=== PATIENT | male | born 1940 | race Caucasian/White ===

== ENCOUNTER → 2024-02-18 | Outpatient (CLI) | payer MEDICARE, MEDICAID, SELFPAY ==
[2024-02-18 12:26] LABS: Basophils % (Auto) 1 % (0-2.5); Eosinophils # (Auto) 0.2 Thou/mm3 (0.0-0.5); Eosinophils % (Auto) 2 % (0-10); Hematocrit 36.9 % (41.0-53.0); Hemoglobin 11.7 g/dL (13.5-16.0); Immature Granulocytes % (Auto) 0 % (0-0); Immature Granulocytes Auto 0.02 Thou/mm3 (0.00-0.00); Lymphocytes # (Auto) 0.9 Thou/mm3 (1.0-4.8); Lymphocytes % (Auto) 11 % (10-50); Mean Corpuscular HGB Conc 31.7 g/dl (31.0-37.0); Mean Corpuscular Hemoglobin 28.7 pg (25.0-35.0); Mean Corpuscular Volume 90 fL (80-100); Monocytes # (Auto) 0.9 Thou/mm3 (0.0-0.8); Monocytes % (Auto) 11 % (0-12); Neutrophils # (Auto) 6.3 Thou/mm3 (1.8-7.7); Neutrophils % (Auto) 75 % (37-80); Nucleated Red Blood Cell % 0 /100 WBC (0); Platelet Count 215 Thou/mm3 (140-440); RDW Standard Deviation 49.5 fL (35.1-43.9); Red Blood Count 4.08 Miln/mm3 (4.50-5.90); White Blood Count 8.4 Thou/mm3 (3.8-10.6)
[2024-02-18 12:42] LABS: Albumin, Serum 4.2 gm/dL (3.4-4.8); Anion Gap 8 (7-16); BUN/Creatinine Ratio 17 Ratio (12-20); Blood Urea Nitrogen 33 mg/dL (9-23); Calcium 9.4 mg/dL (8.3-10.6); Calcium (Corrected) 9.4 mg/dL (8.5-10.1); Carbon Dioxide 21.9 mMol/L (20.0-31.0); Chloride 105 mMol/L (98-107); Creatinine (Component) 1.9 mg/dL (0.6-1.3); Glucose 99 mg/dL (74-106); Osmolality,Calculated 277 (275-295); Phosphorous 3.7 mg/dL (2.4-5.1); Potassium 4.8 mMol/L (3.4-5.1); Sodium 135 mMol/L (136-145); eGFR 34 See Note
== END | disposition home or self-care (01) ==
LOC: COPL 11:02
PROVIDERS: PCP Family Medicine; Referring Provider Family Medicine; Visit Provider Family Medicine
DX: D50.0 Iron deficiency anemia secondary to blood loss (chronic) (principal); Z13.1 Encounter for screening for diabetes mellitus
CPT/HCPCS: 36415; 80069; 85025

== ENCOUNTER 2024-02-29 07:19 | Inpatient (IN) | payer MEDICARE, MEDICAID, SELFPAY ==
[2024-02-29] VITALS (16 sets, daily range): BP systolic 104–137; BP diastolic 76–91; PULSE 77–112; RESP 16–29; TEMP 36.4–37.7; O2SAT 97–100; BMI 20.8
--- NOTE | 2024-02-29 07:38 | PC.NURSE ---
SPOKE WITH DAUGHTER FIONA. PER DAUGHTER PT IS A DNR. DAUGHTER STATES THAT PT HAS BEEN SICK X 4 DAYS AND HAS NOT BEEN EATING WELL. DAUGHTER STATES THAT HER MOM REPORTED PT BEING CONFUSED LAST NIGHT. DAUGHTER STATES PT WAS AT [facility] 3 WEEKS AGO AND HAD ELEVATED TROPONIN LEVELS AND WAS TOLD HE HAD A BLOCKAGE. PER DAUGHTER THEY DECIDED NOT DO ANYTHING AND MAKE PT A DNR. PT IS ALERT AND ORIENTED AT THIS TIME WITH GCS 15. PT PLACED ON 3L NC WHICH EMS STATED THAT PT NORMALLY USES 3L. PT PLACED ON CC MONITOR.
--- NOTE | 2024-02-29 07:44 | EKG_ITS ---
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
--- NOTE | 2024-02-29 08:13 | PD.EDADULT ---
ED General RME/HPI General Chief complaint: Weakness Stated complaint: Weakness Time Seen by Provider: 02/29/24 08:03 Arrival date/time: 02/29/24 07:19 RME / HPI RME / HPI narrative: 84 year old male with history of hypertension and COPD on 3L home oxygen presents to the ED BIBA from home for complaint of weakness today. Reports he had a difficult time getting out of bed and required assistance, which is new for him. Patient additionally reports in the last few days has had pain to his chest and abdomen, occurring intermittently, and not eating/drinking well. Chest pain last occurred 3 days ago. Abdominal pain last occurred yesterday. Accompanied by cough and shortness of breath. No known modifying factors at home. Denies fevers, chills, vomiting, diarrhea, constipation, or urinary symptoms. Related Data Home Medications ?Medication ?Instructions ?Recorded ?Confirmed omeprazole 20 mg capsule,delayed 20 mg PO QDAY 12/20/19 02/29/24 release meloxicam 7.5 mg tablet 7.5 mg PO BID PRN Pain 02/16/23 02/29/24 tramadol 50 mg tablet 50 mg PO Q8H PRN Pain 02/16/23 02/29/24 aspirin 81 mg tablet,delayed 81 mg PO QDAY 02/29/24 02/29/24 release furosemide 40 mg tablet 40 mg PO QDAY 02/29/24 02/29/24 nitroglycerin 0.4 mg sublingual 0.4 mg buccal [id number] PRN Chest 02/29/24 02/29/24 tablet Pain spironolactone 25 mg tablet 25 mg PO QDAY 02/29/24 02/29/24 Allergies Allergy/AdvReac Type Severity Reaction Status Date / Time lidocaine Allergy Intermediate Unresponsiv Verified 02/29/24 07:55 e Review of Systems Review of Systems Narrative Review of Systems: Gen: No fever, no chills, no weight loss EYES: No discharge, no visual changes, no pain HEENT: No ear pain, no congestion, no sore throat PULM: + shortness of breath, +cough, no congestion CV: +chest pain, no palpitations, no chest tightness GI: No nausea, no vomiting, no diarrhea, +pain, +decreased appetite, no constipation : No frequency, no urgency,? no dysuria Musc/skel: No joint pain, no back pain Skin: No rash, no ecchymosis, no lesions Psyc: No hallucinations, no depression Heme/Lymph: No easy bleeding or bruising tendencies Neuro: No weakness, no headache Past Medical History Past Medical History RESPIRATORY: Positive Chronic Obstructive Pulmonary Disease (COPD) and Pneumonia (Has home 02, uses it as need it) GASTROINTESTINAL: Positive Gastrointestinal Disorders and Gastroesophageal Reflux Disease GENITOURINARY: Positive Inguinal Hernia (left) MUSCULOSKELETAL: Positive Musculoskeletal Disorders and Arthritis ENT: Positive Cataracts (Had surgery) and Glaucoma OTHER HISTORY: Positive Hospitalization (pneumonia), Blood Transfusions, Chicken Pox, Measles and Clostridium Difficile Family History FAMILY HISTORY: Negative Family Psychiatric Problems, Family Respiratory Disorders, Family Cardiac Disorders, Family Gastrointestinal Problems, Family Cancer, Family Surgery or Family Anesthesia Reaction Surgical History SURGICAL: Positive Vasectomy Social History SMOKING STATUS: Former smoker SECOND HAND EXPOSURE: No ED Exam Narrative Physical exam: GENERAL APPEARANCE: AxOx4, no obvious distress, nontoxic appearing HEENT: NC, AT. Dry MM. EOMI, clear conjunctiva, oropharynx clear. NECK: Supple without lymphadenopathy. No stiffness or restricted ROM. HEART: Normal rate and regular rhythm, normal S1/S1, no m/r/g LUNGS: CTAB, moving air well. No crackles or wheezes are heard. ABDOMEN: Exam is limited 2/2 voluntary guarding. Soft, diffuse abdominal pain, nondistended with good bowel sounds heard. BACK: No midline C/T/L spine pain or deformity, No CVAT, no obvious deformity. EXTREMITIES: Without cyanosis, clubbing or edema. MUSCULOSKELETAL: FROM of all major joints, no chest tenderness NEUROLOGICAL: Grossly nonfocal. Alert and oriented, moving all 4 extremities. CN not formally tested but appear grossly intact. Skin: Warm and dry without any rash. Course Quality Measures none Orders Category Date Time Status Bedside COVID-19 Antigen Test NOW Care 02/29/24 08:49 Active Bedside Influenza A&B Antigen Test NOW Care 02/29/24 08:49 Completed EKG (ED ONLY) *Do not use* NOW Care 02/29/24 07:44 Completed [place] [Urinary Catheter] QS Care 02/29/24 11:[address] chest abdomen pelvis wo Stat Exams 02/29/24 09:40 Completed EKG (ED Only) Stat Exams 02/29/24 07:44 Draft US gall bladder Stat Exams 02/29/24 09:40 Completed XR chest 1V Stat Exams 02/29/24 08:15 Completed BNP [B-Type Natriuretic Peptide] Stat Lab 02/29/24 08:38 Completed Blood Culture (Lab) Stat Lab 02/29/24 08:46 Results CBC Stat Lab 02/29/24 08:38 Completed CMP [Comprehensive Metabolic Panel] Stat Lab 02/29/24 08:38 Completed Lactate (Lactic Acid) Stat Lab 02/29/24 08:38 Completed Lactic Acid, 3 HR Stat Lab 02/29/24 12:32 Completed Lipase Stat Lab 02/29/24 08:38 Completed Partial Thromboplastin Time Stat Lab 02/29/24 08:38 Completed Potassium Stat Lab 02/29/24 14:02 Completed Procalcitonin Stat Lab 02/29/24 08:38 Completed Prothrombin Time with INR Stat Lab 02/29/24 08:38 Completed RSV [Respiratory Syncytial Virus Ag] Stat Lab 02/29/24 11:42 Completed Troponin I Stat Lab 02/29/24 08:38 Completed Urinalysis Stat Lab 02/29/24 11:42 Completed Furosemide Inj [Lasix Inj] Med 02/29/24 11:17 Discontinued 40 mg IVP X1 ONE Furosemide Inj [Lasix Inj] Med 02/29/24 12:47 Discontinued 40 mg IVP X1 ONE Piper/Tazo 3.375 gm [Zosyn] Med 02/29/24 09:42 Discontinued 3.375 gm in 50 ml IV X1 Sodium Chloride 0.9% 1000 ml [Ns] 1,000 ml Med 02/29/24 08:47 Discontinued IV 999 mls/hr Reevaluation(s) Reevaluation #1: Patient remains clinically stable throughout the emergency department visit. We reviewed all the results, analysis, and treatment plans. Patient is amenable to admission. Time: 12:45 Vital Signs Vital signs: Vital Signs Pulse Rate 110 H 02/29/24 07:28 Respiratory Rate 16 02/29/24 07:28 Blood Pressure 119/85 H 02/29/24 07:28 Pulse Oximetry (%) 98 02/29/24 07:28 Oxygen Delivery Method Room Air 02/29/24 07:28 Pulse ox is 98% on room air which is adequate. MDM Patient data External records reviewed:: [facility] previous records (I reviewed admission from 12/19/2019 through 12/28/2019) and EMS form Clinical information provided by:: patient Social determinants that could affect healthcare access:: none Patient has the following chronic illnesses:: HTN, COPD on 3L home oxygen How is presenting disease/condition affected by chronic disease/condition?: exacerbated by Evaluation data The following diagnostics were reviewed and interpreted by me:: lab results, radiology exam(s) (My interpretation CXR, bilateral lower lobe infiltrates which is new in comparison to CXR performed last month. ) and EKG tracing(s) (Sinus tachycardia, rate 106, left bundle branch block, EKG unchanged from previous on 02/17/2024. ) Lab and/or radiology exams considered but not ordered:: None Interpretation Summary: Ordering Physician: Charly Olivarez MD Date of Service: 02/29/24 Procedure(s): CT chest abdomen pelvis wo Accession Number(s): [id number] cc: Charly Olivarez MD; Raúl Gil MD; Paul Rodgers MD~ Examination: CT chest, without intravenous contrast. CT abdomen, without intravenous contrast. CT pelvis, without intravenous contrast. 2-D sagittal and coronal reconstructions. 3-D reconstructions. Date and time of exam:February 29, 2024 1007 hours INDICATIONS: Right upper abdominal pain with shortness of breath beginning today CTDI vol (mgy) 5.73 DLP (MGycm)486 Technique: Multiple CT images, 3.0 mm slice thickness, obtained chest, abdomen, pelvis, with the high-resolution 64 slice scanner.. Sagittal and coronal 2-D reconstructions are obtained. 3-D reconstructions Low dose protocols were performed. One or more of the following dose reduction techniques were used; automated exposure control, adjustment of the mA and/or KV according to patient size, use of iterative reconstruction technique. Findings: Heavy thoracic aortic calcification with mild aneurysmal dilatation, mediolateral dimension ascending thoracic aorta 4.3 cm Pulmonary artery segments are mildly enlarged, main pulmonary artery segment 3.1 cm Heavy calcification left main left anterior descending coronary arteries Mild to moderate enlargement cardiac contour Heart failure with mild to moderate enlargement cardiac contour vascular congestion and septal edema Significant pneumonia at the lung bases Moderate left pleural effusion No focal liver or splenic lesions No pancreatic mass Heavy abdominal aortic calcification heavy calcification origin renal arteries No hydronephrosis IMPRESSION: Mild CHF with bilateral pulmonary edema or prominent vascular congestion Significant pneumonia at the lung bases Mild aneurysmal dilatation ascending thoracic aorta Dictated By:Raúl Gil MD Signed By:<Electronically signed by Raúl Gil MD in OV>02/29/24 1048 Ordering Physician: Charly Olivarez MD Date of Service: 02/29/24 Procedure(s): XR chest 1V Accession Number(s): [id number] cc: Charly Olivarez MD; Raúl Gil MD; Paul Rodgers MD~ Examination: AP chest single view TECHNIQUE: AP portable sitting chest single view Exam date and time: February 29, 2024 0829 hours Comparison February 02, 2024 INDICATIONS: Onset chest pain today. FINDINGS: Mild CHF with moderate enlargement cardiac contour with prominent vascular congestion Pneumonia at the left lung base Prominent osteopenia IMPRESSION: Mild CHF COPD Pneumonia left base Dictated By:Raúl Gil MD Signed By: <Electronically signed by Raúl Gil MD in OV>02/29/24 1113 Ordering Physician: Charly Olivarez MD Date of Service: 02/29/24 Procedure(s): US gall bladder Accession Number(s): [id number] cc: Charly Olivarez MD; Raúl Gil MD; Paul Rodgers MD~ Examination: Abdomen sonogram, Limited Date and time of exam: February 29, 2024 1204 hours INDICATIONS: Loss of appetite beginning 3 weeks ago Technique: Real-time arias scale transabdominal sonographic images of the upper abdomen obtained. Findings: Normal gallbladder Normal common bile duct 0.2 cm Pancreatic head 2.7 cm Liver 14.4 cm smooth contour no focal liver lesions Normal hepatopedal portal venous flow Patent IVC IMPRESSION: Negative examination Dictated By:Raúl Gil MD Signed By:<Electronically signed by Raúl Gil MD in OV>02/29/24 1317 Medications Medications considered but not ordered:: None Medication administrations:: Medication Administration History Acetaminophen (Acetaminophen 325 Mg Tablet) 650 mg PO Q6H PRN PRN Reason: Fever >100.3 or pain 1-3 Stop: 03/30/24 13:39 Albuterol/Ipratropium (Albuterol/Ipratropium (Duoneb) Rt Gretchen 3 Ml Nebu) 3 ml INH Q6HRRT PRN PRN Reason: COUGH Stop: 03/30/24 18:59 Last Admin: 03/01/24 01:57 Dose: 3 ml Documented By: SC Aspirin (Aspirin Ec 81 Mg Tabec) 81 mg PO QDAY [facility] Stop: 03/31/24 08:59 Last Admin: 03/01/24 09:09 Dose: 81 mg Documented By: JESSICA Bumetanide (Bumetanide Inj 0.25 Mg/Ml Vial 4 Ml) 1 mg IVP BIDD [facility] Stop: 03/30/24 17:59 Last Admin: 03/01/24 05:35 Dose: 1 mg Documented By: Admin: 02/29/24 19:19 Dose: 1 mg Documented By: KG Heparin Sodium/Dextrose (Heparin In D5w Ivpb) 25,000 unit in 250 mls @ 9.09 mls/hr IV .Q24H [facility]; Protocol Stop: 03/14/24 19:14 Last Titration: 03/01/24 12:15 Dose: 14 units/kg/hr, 10.605 mls/hr Documented By: JESSICA Co-signed By: MGFlavio Titration: 03/01/24 04:42 Dose: 14 units/kg/hr, 10.605 mls/hr Documented By: MARCUS Co-signed By: CCT Admin: 02/29/24 20:43 Dose: 12 units/kg/hr, 9.09 mls/hr Documented By: MARCUS Co-signed By: MLFlaivo Sodium Chloride (Ns) 1,000 mls @ 80 mls/hr IV .[id number] [facility] Stop: 03/02/24 09:12 Last Admin: 03/01/24 09:35 Dose: 80 mls/hr Documented By: JESSICA Metoprolol Tartrate (Metoprolol Tartrate 25 Mg Tablet) 12.5 mg PO BID [facility] Stop: 03/31/24 08:59 Last Admin: 03/01/24 09:09 Dose: 12.5 mg Documented By: JESSICA Ondansetron HCl (Ondansetron Inj 2 Mg/Ml Inj 2 Ml) 4 mg IV Q6H PRN; Protocol PRN Reason: NAUSEA OR VOMITING Stop: 03/30/24 13:39 Last Admin: 02/29/24 18:02 Dose: 4 mg Documented By: DO Pantoprazole Sodium (Pantoprazole 20 Mg Tablet) 20 mg PO QDAY [facility] Stop: 03/31/24 08:59 Last Admin: 03/01/24 09:09 Dose: 20 mg Documented By: JESSICA Patiromer (Patiromer Calcium 8.4 Gm Packet (Non-Form)) 8.4 gm PO QDAY [facility] Stop: 03/06/24 08:59 Last Admin: 03/01/24 09:34 Dose: 8.4 gm Documented By: JESSICA Tramadol HCl (Tramadol Hcl 50 Mg Tablet) 50 mg PO Q12H PRN; Protocol PRN Reason: PAIN SCALE 4-10(Mod-Sev Stop: 03/06/24 11:43 Discontinued Medications Acetaminophen (Acetaminophen 325 Mg Tablet) 650 mg PO Q6H PRN PRN Reason: Fever >100.3 or pain Stop: 03/30/24 13:39 Calcium Gluconate (Calcium Gluconate 10% Inj 1 Gm/10 Ml Vial) 1 gm IV X1 ONE Stop: 02/29/24 16:33 Last Admin: 02/29/24 16:53 Dose: 1 gm Documented By: DO Furosemide (Furosemide Inj 10 Mg/Ml 4ml Vial) 40 mg IVP X1 ONE Stop: 02/29/24 11:18 Last Admin: 02/29/24 11:33 Dose: 40 mg Documented By: DO Furosemide (Furosemide Inj 10 Mg/Ml 4ml Vial) 40 mg IVP X1 ONE Stop: 02/29/24 12:48 Last Admin: 02/29/24 13:06 Dose: 40 mg Documented By: DO Heparin Sodium (Porcine) (Heparin Sod Inj 5000 Unit/Ml Vial) 5,000 unit SC Q12HR [facility] Stop: 03/14/24 20:59 Heparin Sodium (Porcine) (Heparin Sod Inj 5000 Unit/Ml Vial) 4,000 unit IV X1 ONE; Protocol Stop: 02/29/24 19:04 Last Admin: 02/29/24 20:41 Dose: 4,000 unit Documented By: MARCUS Co-signed By: MADELINE Comments: ptt 27.6 Heparin Sodium (Porcine) (Heparin Sod Inj 5000 Unit/Ml Vial) 2,000 unit IV PRN ONE Stop: 03/01/24 03:49 Heparin Sodium (Porcine) (Heparin Sod Inj 5000 Unit/Ml Vial) 2,000 unit IV X1 ONE Stop: 03/01/24 04:22 Last Admin: 03/01/24 04:34 Dose: 2,000 unit Documented By: MARCUS Co-signed By: VICKY Sodium Chloride (Ns) 1,000 mls @ 999 mls/hr IV .Q1H1M ONE Stop: 02/29/24 09:47 Last Infusion: 02/29/24 11:15 Dose: Infused Documented By: Admin: 02/29/24 09:53 Dose: 999 mls/hr Documented By: Piperacillin/Tazobactam/Dextrose (Zosyn) 3.375 gm in 50 mls @ 100 mls/hr IV X1 ONE Stop: 02/29/24 10:11 Last Infusion: 02/29/24 11:00 Dose: Infused Documented By: Admin: 02/29/24 09:52 Dose: 100 mls/hr Documented By: Piperacillin/Tazobactam/Dextrose (Zosyn) 50 mls @ 100 mls/hr IV Q6HR [facility] Stop: 03/07/24 15:59 Last Admin: 03/01/24 05:35 Dose: 100 mls/hr Documented By: Infusion: 03/01/24 00:51 Dose: Infused Documented By: Admin: 03/01/24 00:21 Dose: 100 mls/hr Documented By: Infusion: 02/29/24 18:50 Dose: Infused Documented By: Admin: 02/29/24 17:38 Dose: 100 mls/hr Documented By: Magnesium Sulfate (Magnesium Sulfate Ivpb) 2 gm in 50 mls @ 25 mls/hr IV X1 ONE Stop: 02/29/24 18:32 Last Infusion: 02/29/24 19:14 Dose: Infused Documented By: Admin: 02/29/24 16:56 Dose: 25 mls/hr Documented By: Amiodarone HCl/Dextrose (Nexterone Ivpb) 150 mg in 100 mls @ 600 mls/hr IV .Q10M ONE Stop: 02/29/24 19:05 Last Admin: 02/29/24 20:22 Dose: 600 mls/hr Documented By: MARCUS Amiodarone HCl/Dextrose (Nexterone Ivpb) 360 mg in 200 mls @ 33.333 mls/hr IV .Q6H ONE Stop: 03/01/24 00:55 Last Admin: 02/29/24 20:32 Dose: 33.333 mls/hr Documented By: MARCUS Amiodarone HCl/Dextrose (Nexterone Ivpb) 360 mg in 200 mls @ 16.667 mls/hr IV .Q12H [facility] Stop: 03/02/24 00:55 Last Admin: 03/01/24 02:16 Dose: 16.667 mls/hr Documented By: MARCUS Piperacillin/Tazobactam/Dextrose (Zosyn) 50 mls @ 12.5 mls/hr IV Q12HR [facility] Stop: 03/07/24 15:59 Last Admin: 03/01/24 12:42 Dose: 12.5 mls/hr Documented By: JESSICA Metoprolol Tartrate (Metoprolol Tartrate 25 Mg Tablet) 25 mg PO BID [facility] Stop: 03/31/24 08:59 Sodium Polystyrene Sulfonate (Sod Polystyrene Sulfon Susp 15 Gm/60 Ml Btl) 10 gm PO X1 ONE Stop: 02/29/24 16:33 Last Admin: 02/29/24 17:39 Dose: 10 gm Documented By: Sodium Polystyrene Sulfonate (Sod Polystyrene Sulfon Susp 15 Gm/60 Ml Btl) 30 gm PO X1 ONE Stop: 03/01/24 08:26 Tramadol HCl (Tramadol Hcl 50 Mg Tablet) 50 mg PO Q8HR PRN PRN Reason: PAIN Stop: 03/06/24 09:57 Tramadol HCl (Tramadol Hcl 50 Mg Tablet) 50 mg PO Q8HR PRN PRN Reason: PAIN SCALE 4-10(Mod-Sev Stop: 03/06/24 09:57 Last Admin: 03/01/24 10:15 Dose: 50 mg Documented By: JRR See above Consultations Consultation(s) initiated? (list below): Yes Consultation #1 (Physician, Specialty, Details): I spoke with hospitalist Dr. Merida. Discussed patients PMHx, HPI, ED course, exam findings, labs, and radiology results. The hospitalist agree to accept the patient for admission. Time: 12:50 Diagnosis Differential Diagnosis ED Complaint MDM: Dehydration, viral illness, pneumonia Most likely diagnosis given after review of the tests above:: CHF exacerbation Hospital acquired pneumonia Admission Indicated Admission indicated?: indicated Explain why admission is indicated or not indicated:: Further management and treatment of CHF exacerbation and hosp acquired pna. Admission Request Was there a request for admission?: Yes Admission Attestation Admission request attestation: Discussed case with [] from Hospitalist service regarding admission. Discussed patients ED course, exam findings, labs, and radiology results. The Hospitalist [agrees,declines] to accept the patient for admission. Disposition Plan Disposition Plan: Admit Medical Decision Making Differential Diagnosis Differential Diagnosis: Dehydration, viral illness, pneumonia Lab Data 03/01/24 03:07 03/01/24 03:07 Labs: Lab Results 02/29/24 02/29/24 02/29/24 Range/Units 08:38 11:42 12:32 WBC 9.9 (3.8-10.6) Thou/mm3 RBC 4.33 L (4.50-5.90) Miln/mm3 Hgb 12.4 L (13.5-16.0) g/dL Hct 37.9 L (41.0-53.0) % MCV 88 (80-100) fL MCH 28.6 (25.0-35.0) pg MCHC 32.7 (31.0-37.0) g/dl RDW Std Deviation 48.7 H (35.1-43.9) fL Plt Count 212 (140-440) Thou/mm3 Neut % (Auto) 74 (37-80) % Lymph % (Auto) 10 (10-50) % [place] % (Auto) 16 H (0-12) % Eos % (Auto) 0 (0-10) % Baso % (Auto) 0 (0-2.5) % Neut # (Auto) 7.3 (1.8-7.7) Thou/mm3 Lymph # (Auto) 1.0 (1.0-4.8) Thou/mm3 [place] # (Auto) 1.6 H (0.0-0.8) Thou/mm3 Eos # (Auto) 0.0 (0.0-0.5) Thou/mm3 Baso # (Auto) 0.0 (0.0-0.2) Thou/mm3 Immature Gran # (Auto) 0.03 H (0.00-0.00) Thou/mm3 Absolute Nucleated RBC 0.00 (0.00-0.00) Thou/mm3 Immature Gran % 0 (0-0) % Nucleated RBC % 0 (0) /100 WBC PT 14.6 H (9.0-12.2) Seconds INR 1.4 H (0.9-1.3) APTT 27.6 (22.0-36.0) Seconds Sodium 135 L (136-145) mMol/L Potassium 5.6 H (3.4-5.1) mMol/L Chloride 102 (98-107) mMol/L Carbon Dioxide 21.2 (20.0-31.0) mMol/L Anion Gap 12 (7-16) BUN 50 H (9-23) mg/dL Creatinine 2.6 H (0.6-1.3) mg/dL Estim Creat Clear Calc 21.9 L (>60) mL/min eGFR 23 L (60 - ) See Note BUN/Creatinine Ratio 19 (12-20) Ratio Glucose 112 H (74-106) mg/dL Calculated Osmolality 284 (275-295) Lactic Acid 2.4 H 2.4 H (0.4-2.0) mMol/L Calcium 10.1 (8.3-10.6) mg/dL Corrected Calcium 10.1 (8.5-10.1) mg/dL Total Bilirubin 1.2 (0.3-1.2) mg/dL AST 444 H (0-34) U/L ALT 600 H* (10-49) U/L Alkaline Phosphatase 129 H (46-116) U/L Troponin I 0.060 H* (0.0-0.045) ng/mL B-Natriuretic Peptide > 3280 H* (0-100) pg/mL Total Protein 7.3 (5.7-8.2) gm/dL Albumin 4.4 (3.4-4.8) gm/dL Globulin 2.9 (2.3-3.5) gm/dL Albumin/Globulin Ratio 1.5 (1.2-2.2) Lipase 28 (12-53) U/L Procalcitonin 0.29 (0.0-0.49) ng/ml Ur Collection Type Catheter Urine Color Yellow (Lt Yel-Yel) Urine Clarity Clear (Clear/Hazy) Urine pH 5.5 (5.0-7.0) Ur Specific [place] 1.022 (1.001-1.035) Urine Protein 1+ A (Neg - Trace) Urine Glucose (UA) Negative (Negative) Urine Ketones Trace (Negative) Urine Blood Negative (Negative) Urine Nitrite Negative (Negative) Urine Bilirubin Negative (Negative) Urine Urobilinogen (Auto) Negative (0.0-1.0) mg/dL Ur Leukocyte Esterase Negative (Negative) Urine RBC < 1 (0-3) /hpf Urine WBC 1 (0-5) /hpf Ur Squamous Epith Cells 0 (0-5) /hpf Urine Bacteria None (None) RSV Rapid Negative (Negative) Critical Care Time Critical Care Time Critical Care Time: Yes Total Critical Care Time (min.): 45 Attestation: Excluding billable procedures for the rapid response, analysis, management, treatment, and documentation to vent the very possible risk of cardiovascular decompensation and or . Discharge Plan Plan Patient Disposition: Admit Acute Care w/in Hospital Problem List Clinical Impression: CHF exacerbation, Hospital acquired PNA
[2024-02-29 09:04] LABS: Lactate (Lactic Acid) 2.4 mMol/L (0.4-2.0)
[2024-02-29 09:05] LABS: Basophils % (Auto) 0 % (0-2.5); Eosinophils % (Auto) 0 % (0-10); Hematocrit 37.9 % (41.0-53.0); Hemoglobin 12.4 g/dL (13.5-16.0); Immature Granulocytes % (Auto) 0 % (0-0); Immature Granulocytes Auto 0.03 Thou/mm3 (0.00-0.00); Lymphocytes % (Auto) 10 % (10-50); Mean Corpuscular HGB Conc 32.7 g/dl (31.0-37.0); Mean Corpuscular Hemoglobin 28.6 pg (25.0-35.0); Mean Corpuscular Volume 88 fL (80-100); Monocytes # (Auto) 1.6 Thou/mm3 (0.0-0.8); Monocytes % (Auto) 16 % (0-12); Neutrophils # (Auto) 7.3 Thou/mm3 (1.8-7.7); Neutrophils % (Auto) 74 % (37-80); Nucleated Red Blood Cell % 0 /100 WBC (0); Platelet Count 212 Thou/mm3 (140-440); RDW Standard Deviation 48.7 fL (35.1-43.9); Red Blood Count 4.33 Miln/mm3 (4.50-5.90); White Blood Count 9.9 Thou/mm3 (3.8-10.6)
[2024-02-29 09:22] LABS: INR 1.4 (0.9-1.3); Partial Thromboplastin Time 27.6 Seconds (22.0-36.0); Prothrombin Time 14.6 Seconds (9.0-12.2)
[2024-02-29 09:34] LABS: Alanine Aminotransferase 600 U/L (10-49); Albumin, Serum 4.4 gm/dL (3.4-4.8); Albumin/Globulin Ratio 1.5 (1.2-2.2); Alkaline Phosphatase 129 U/L (46-116); Anion Gap 12 (7-16); Aspartate Amino Transferase 444 U/L (0-34); BUN/Creatinine Ratio 19 Ratio (12-20); Bilirubin,Total 1.2 mg/dL (0.3-1.2); Blood Urea Nitrogen 50 mg/dL (9-23); Calcium 10.1 mg/dL (8.3-10.6); Calcium (Corrected) 10.1 mg/dL (8.5-10.1); Carbon Dioxide 21.2 mMol/L (20.0-31.0); Chloride 102 mMol/L (98-107); Creatinine (Component) 2.6 mg/dL (0.6-1.3); Estimated Creatinine Clearance 21.9 mL/min (>60); Globulin 2.9 gm/dL (2.3-3.5); Glucose 112 mg/dL (74-106); Lipase 28 U/L (12-53); Osmolality,Calculated 284 (275-295); Potassium 5.6 mMol/L (3.4-5.1); Procalcitonin 0.29 ng/ml (0.0-0.49); Sodium 135 mMol/L (136-145); Total Protein 7.3 gm/dL (5.7-8.2); eGFR 23 See Note
--- NOTE | 2024-02-29 09:40 | XR_ITS ---
Examination: Abdomen sonogram, Limited Date and time of exam: February 29, 2024 1204 hours INDICATIONS: Loss of appetite beginning 3 weeks ago Technique: Real-time arias scale transabdominal sonographic images of the upper abdomen obtained. Findings: Normal gallbladder Normal common bile duct 0.2 cm Pancreatic head 2.7 cm Liver 14.4 cm smooth contour no focal liver lesions Normal hepatopedal portal venous flow Patent IVC IMPRESSION: Negative examination
--- NOTE | 2024-02-29 09:40 | XR_ITS ---
Examination: CT chest, without intravenous contrast. CT abdomen, without intravenous contrast. CT pelvis, without intravenous contrast. 2-D sagittal and coronal reconstructions. 3-D reconstructions. Date and time of exam:February 29, 2024 1007 hours INDICATIONS: Right upper abdominal pain with shortness of breath beginning today CTDI vol (mgy) 5.73 DLP (MGycm)486 Technique: Multiple CT images, 3.0 mm slice thickness, obtained chest, abdomen, pelvis, with the high-resolution 64 slice scanner.. Sagittal and coronal 2-D reconstructions are obtained. 3-D reconstructions Low dose protocols were performed. One or more of the following dose reduction techniques were used; automated exposure control, adjustment of the mA and/or KV according to patient size, use of iterative reconstruction technique. Findings: Heavy thoracic aortic calcification with mild aneurysmal dilatation, mediolateral dimension ascending thoracic aorta 4.3 cm Pulmonary artery segments are mildly enlarged, main pulmonary artery segment 3.1 cm Heavy calcification left main left anterior descending coronary arteries Mild to moderate enlargement cardiac contour Heart failure with mild to moderate enlargement cardiac contour vascular congestion and septal edema Significant pneumonia at the lung bases Moderate left pleural effusion No focal liver or splenic lesions No pancreatic mass Heavy abdominal aortic calcification heavy calcification origin renal arteries No hydronephrosis IMPRESSION: Mild CHF with bilateral pulmonary edema or prominent vascular congestion Significant pneumonia at the lung bases Mild aneurysmal dilatation ascending thoracic aorta
--- NOTE | 2024-02-29 09:45 | PC.NURSE ---
pt noted to have possible runs of v-tach. cardiac strips printed and shown to dr chavez at this time. no new orders received
[2024-02-29] MEDS: PIPER/TAZO 3.375 GM 3.375 GM/50 ML BAG IV (09:52)
[2024-02-29] MEDS: SODIUM CHLORIDE 0.9% 1000 ML 1,000 ML 999 ML IV (09:53)
[2024-02-29] MEDS: FUROSEMIDE INJ 10 MG/ML 4ML VIAL 40 MG IVP ×2 (11:33→13:06)
--- NOTE | 2024-02-29 11:38 | PC.NURSE ---
400ml urine output noted with cath insertion.
[2024-02-29 11:45] LABS: Collection Type, Urine Catheter; Squamous Epithelial Cell,Urine 0 /hpf (0-5)
[2024-02-29 11:52] LABS: Bilirubin,Urine Negative (Negative); Blood,Urine Negative (Negative); Clarity,Urine Clear (Clear/Hazy); Color,Urine Yellow (Lt Yel-Yel); Glucose, Urine Negative (Negative); Ketones,Urine Trace (Negative); Leukocyte Esterase,Urine Negative (Negative); Nitrite,Urine Negative (Negative); PH,Urine 5.5 (5.0-7.0); Protein,Urine 1+ (Neg - Trace); RBC,Urine < 1 /hpf (0-3); Specific Gravity,Urine 1.022 (1.001-1.035); Urobilinogen,Urine Negative mg/dL (0.0-1.0); WBC,Urine 1 /hpf (0-5)
[2024-02-29 12:02] LABS: Reflex Lactate? Y
[2024-02-29 12:12] LABS: B-Type Natriuretic Peptide > 3280 pg/mL (0-100)
[2024-02-29 12:18] LABS: Respiratory Syncytial Virus Ag Negative (Negative)
[2024-02-29 12:39] LABS: Lactic Acid, 3 HR 2.4 mMol/L (0.4-2.0)
--- NOTE | 2024-02-29 13:46 | ECHO_ITS ---
Transthoracic Echo Report Ht (in): 75 Wt (lb): 167 Exam Location: ER Status: Inpatient Vegetable Cook: Kassandra Torres Indications: Procedure Performed: BP: 104 / 89 HR: 112 Rhythm: Tachycardia Technical Quality: Fair MEASUREMENTS (Male / Female) Normal Values 2D ECHO LV Diastolic Diameter PLAX 5.8 cm 4.2 - 5.9 / 3.9 - 5.3 cm LV Systolic Diameter PLAX 5.4 cm IVS Diastolic Thickness 1.1 cm 0.6 - 1.0 / 0.6 - 0.9 cm LVPW Diastolic Thickness 1.1 cm 0.6 - 1.0 / 0.6 - 0.9 cm LV Relative Wall Thickness 0.4 LVOT Diameter 2.1 cm LA Volume Index 64.4 cm?/m? 16 - 28 cm?/m? Ascending Aorta Diameter 2.7 cm M-MODE Aortic Root Diameter MM 2.7 cm LA Systolic Diameter MM 5.3 cm LA Ao Ratio MM 2.0 MV E Point Septal Separation 1.4 cm AV Cusp Separation MM 1.7 cm DOPPLER AV Peak Velocity 96.9 cm/s AV Peak Gradient 3.8 mmHg AV Mean Gradient 2.0 mmHg AV Velocity Time Integral 10.5 cm LVOT Peak Velocity 61.5 cm/s LVOT Peak Gradient 1.5 mmHg LVOT Velocity Time Integral 6.5 cm LVOT Cardiac Index 1267.3 cm?/min?m? AV Area Cont Eq vti 2.1 cm? AV Area Cont Eq pk 2.2 cm? MV Peak Velocity 189.0 cm/s MV Peak Gradient 14.3 mmHg MV Mean Velocity 84.8 cm/s MV Mean Gradient 4.0 mmHg MV Area PHT 4.9 cm? MR Peak Velocity 486.0 cm/s MR Peak Gradient 94.5 mmHg Mitral E Point Velocity 137.0 cm/s Mitral A Point Velocity 34.5 cm/s Mitral E to A Ratio 4.0 LV E' Lateral Velocity 13.3 cm/s Mitral E to LV E' Lateral Ratio 10.3 LV E' Septal Velocity 1.8 cm/s Mitral E to LV E' Septal Ratio 74.1 TR Peak Velocity 352.6 cm/s TR Peak Gradient 49.7 mmHg FINDINGS Left Ventricle Mild dilated left ventricle. Severe systolic dysfunction. Severe global hypokinesis. The ejection fr action is visually estimated at 10-15%. Right Ventricle The right ventricle is mildly dilated. Mild systolic dysfunction. The estimated right ventricular sy stolic pressure, 68 mmHg. Left Atrium The left atrium is severly dilated. Right Atrium The right atrium is moderately dilated. Atrial Septum The interatrial septum appears normal with no evidence of a shunt. Aorta The aorta is normal by two-dimensional, color flow and Doppler interrogation. Mitral Valve The mitral valve is severely MAC. There is moderate to severe mitral valve regurgitation. Aortic Valve The aortic valve is trileaflet. Mild sclerosis without stenosis. There is trace aortic valve regurg itation. Tricuspid Valve The tricuspid valve is normal by two-dimensional, color flow and Doppler interrogation. There is mod erate tricuspid valve regurgitation. Pulmonic Valve There is no significant pulmonic valve regurgitation. Vessels The pulmonary artery appears normal. The inferior vena cava pulmonary and hepatic veins appear dilat ed. Pericardium The pericardium is normal by two-dimensional imaging. There is no significant pericardial effusion. CONCLUSIONS Indication: CHF/ SOB Dilated cardiomyopathy. Moderatelly dialted LV, RV and RA. Severely dilated LA Severe LV systolic dysfunction with Severe global hypokinesis.Estimated EF < 20%. Septal and lateral wall dysnchrony due to LBBB. Diastolic dysfunction present bbut cannot grade due to severe MAC Mild RV systolic dysfunction. Estimated RVSP 68mmHg. Moderate to severe PAH Severe MAC. Moderate MR and TR. Trace AI. Mild AV sclerosis without stneosis. IVC dilated. Damian Hartman (Electronically Signed) Final Date: 29 February 2024 18:17
[2024-02-29 14:37] LABS: Potassium 5.3 mMol/L (3.4-5.1)
--- NOTE | 2024-02-29 15:01 | PC.NURSE ---
pt noted to have runs of v-tach at this time. pt denies pain or discomfort. ekg ordered and will contact admitting doctor
--- NOTE | 2024-02-29 15:05 | PC.NURSE ---
spoke to Dr. Lopez. informed him that pt is having frequent runs of v-tach. orders received to add magnesium level to blood work. no other orders received at this time
--- NOTE | 2024-02-29 15:28 | ESHP_ITS ---
<Statement entered by Kiera Florian MD - 03/01/24 18:06> Patient is a 84 y.o male w/ PMHX significant for HFrEF, CKD, CAD, HTN, COPD on 3L who presented to the ED with chronic weakness and SOB and admitted for acute on chronic hypoxic respiratory failure and acute on chronic heart failure exacerbation. Patient was recently seen and evaluated at [facility] where cardiac cath suggested patient would need open heart surgery, however, declined at the time. Patient will be managed with IV diuresis and fluid restriction. Will order Echo and consult Dr. Hartman, cardiology for further recommendations. D/t CXR suggesting left base PNA and recent hospitalization at [facility] will start IV Zosyn to cover for HAP. Will continue to monitor elevated LFTs and trend troponin. I discussed with and supervised the advisory intern physician who took care of this patient. I personally saw and examined the patient and discussed the assessment and plan with the entire medicine team, including my attending , I agree with most of the assessment and plan as documented below Kiera Florian M.D. PGY-2 Documentation for date of: 02/29/24 HPI History of Present Illness Chief complaint: feeling weak History of present illness: Jorje Roblero is 84 yr male with PMH of HTN, COPD on 3L home oxygen, left inguinal hernia repair who presents to ED today because he has been feeling week since past few days. Patient stated that for the past few days he has not been able to eat much endorsing decreased appetite and nausea with dry heaving. He has been having difficulty getting out of bed, which is not normal for patient. Also endorses having shortness of breath, fatigue, cough. Typically patient is able to complete daily activities without difficulty. This morning, patient's had to assist him getting out of bed which is not typical for him. Denies any lower extremity swelling, fever, palpitations. Patient has to use oxygen at all times. Per parminder, about two weeks ago, he was taken to [facility] due to chest pain. LHC had showed significant stenosis. It was recommended that patient undergo CABG, however family refused at the time. In ED, vitals significant for soft blood pressure 104/89, mild tachycardia 110, oxygen saturation 98% on 3 L nasal cannula. CBC unremarkable except mild anemia Hb 12.4, CMP significant for hyperkalemia 5.6, elevated creatinine 2.6, elevated lactic acid 2.4. AST 444, ALT 600, alk phos 129, BNP greater than 30 280, troponin 0.06 uptrending to 0.07 on repeat. Diagnostic imaging: U/s gallbladder no findings, CT A/P mild CHF with bilateral pulmonary edema and prominent vascular congestion, significant pneumonia of bilateral lung bases. No acute ischemic changes on EKG. In ED, patient was given furosemide 40 mg x 2, 1 L bolus of normal saline, started on IV Zosyn. Patient admitted for management of CHF exacerbation and community-acquired pneumonia. PMH: as noted above PSH: as noted above Social: smoked 1PPD for 25 yrs, quit 10 years ago. No longer drinks but did extensively up to 3 years ago (per chart review). Lives at home with . Review of Systems Constitutional Constitutional: Reports system reviewed and no additional complaints, except as documented Exam Vital Signs Temp Pulse Resp BP Pulse Ox O2 Del Method O2 Flow Rate 97.6 F 109 H 20 104/89 H 100 Nasal Cannula 3 02/29/24 13:11 02/29/24 15:14 02/29/24 15:14 02/29/24 13:11 02/29/24 15:14 02/29/24 13:11 02/29/24 15:14 Narrative Exam General: Alert and oriented x3. No acute distress, cooperative HEENT: Atraumatic, normocephalic. No JVD noted. Mucosa moist. Cardiovascular: Normal S1 and S2. Regular rate and rhythm. +1 pitting edema Respiratory: Lungs are clear to auscultation bilaterally. No wheezing or crackles heard. Abdomen: Soft, nontender, not distended, normal bowel sounds, conner catheter Skin: Warm to touch, dry, no rashes noted Musculoskeletal: No gross injuries. Able to move all 4 extremities. Neuro: Alert and oriented x3. No focal neuro deficits. Psych: Normal affect and mood Results: Labs 02/29/24 08:38 02/29/24 14:02 Labs: Short CBC 02/29/24 Range/Units 08:38 WBC 9.9 (3.8-10.6) Thou/mm3 Hgb 12.4 L (13.5-16.0) g/dL Hct 37.9 L (41.0-53.0) % Plt Count 212 (140-440) Thou/mm3 BMP 02/29/24 02/29/24 08:38 14:02 Sodium 135 L Potassium 5.6 H 5.3 H Chloride 102 Carbon Dioxide 21.2 BUN 50 H Creatinine 2.6 H Glucose 112 H Calcium 10.1 Cardiac Enzymes 02/29/24 Range/Units 08:38 Troponin I 0.060 H* (0.0-0.045) ng/mL Liver Function 02/29/24 Range/Units 08:38 Total Bilirubin 1.2 (0.3-1.2) mg/dL AST 444 H (0-34) U/L ALT 600 H* (10-49) U/L Alkaline Phosphatase 129 H (46-116) U/L Albumin 4.4 (3.4-4.8) gm/dL Urine 02/29/24 Range/Units 11:42 Urine Color Yellow (Lt Yel-Yel) Urine Clarity Clear (Clear/Hazy) Urine pH 5.5 (5.0-7.0) Ur Specific [place] 1.022 (1.001-1.035) Urine Protein 1+ A (Neg - Trace) Urine Glucose (UA) Negative (Negative) Quality Measures Quality Measures none Advance care planning discussed with:: child Medications Home Medications and Allergies Home Medications ?Medication ?Instructions ?Recorded ?Confirmed ?Type omeprazole 20 mg capsule,delayed 20 mg PO QDAY 12/20/19 02/29/24 History release meloxicam 7.5 mg tablet 7.5 mg PO BID PRN Pain 02/16/23 02/29/24 History tramadol 50 mg tablet 50 mg PO Q8H PRN Pain 02/16/23 02/29/24 History aspirin 81 mg tablet,delayed 81 mg PO QDAY 02/29/24 02/29/24 History release furosemide 40 mg tablet 40 mg PO QDAY 02/29/24 02/29/24 History nitroglycerin 0.4 mg sublingual 0.4 mg buccal [id number] PRN Chest 02/29/24 02/29/24 History tablet Pain spironolactone 25 mg tablet 25 mg PO QDAY 02/29/24 02/29/24 History Allergies Allergy/AdvReac Type Severity Reaction Status Date / Time lidocaine Allergy Intermediate Unresponsiv Verified 02/29/24 07:55 e Visit Medications Acetaminophen (Acetaminophen 325 Mg Tablet) 650 mg PO Q6H PRN PRN Reason: Fever >100.3 or pain Stop: 03/30/24 13:39 Albuterol/Ipratropium (Albuterol/Ipratropium (Duoneb) Rt Gretchen 3 Ml Nebu) 3 ml INH Q6HRRT PRN PRN Reason: COUGH Stop: 03/30/24 18:59 Aspirin (Aspirin Ec 81 Mg Tabec) 81 mg PO QDAY [facility] Stop: 03/31/24 08:59 Bumetanide (Bumetanide Inj 0.25 Mg/Ml Vial 4 Ml) 1 mg IVP BIDD LUCERO Stop: 03/30/24 17:59 Heparin Sodium (Porcine) (Heparin Sod Inj 5000 Unit/Ml Vial) 5,000 unit SC Q12HR LUCERO Stop: 03/14/24 20:59 Piperacillin/Tazobactam/Dextrose (Zosyn) 50 mls @ 100 mls/hr IV Q6HR LUCERO Stop: 03/07/24 15:59 Ondansetron HCl (Ondansetron Inj 2 Mg/Ml Inj 2 Ml) 4 mg IV Q6H PRN; Protocol PRN Reason: NAUSEA OR VOMITING Stop: 03/30/24 13:39 Pantoprazole Sodium (Pantoprazole 20 Mg Tablet) 20 mg PO QDAY [facility] Stop: 03/31/24 08:59 Discontinued Medications Furosemide (Furosemide Inj 10 Mg/Ml 4ml Vial) 40 mg IVP X1 ONE Stop: 02/29/24 11:18 Last Admin: 02/29/24 11:33 Dose: 40 mg Furosemide (Furosemide Inj 10 Mg/Ml 4ml Vial) 40 mg IVP X1 ONE Stop: 02/29/24 12:48 Last Admin: 02/29/24 13:06 Dose: 40 mg Sodium Chloride (Ns) 1,000 mls @ 999 mls/hr IV .Q1H1M ONE Stop: 02/29/24 09:47 Last Infusion: 02/29/24 11:15 Dose: Infused Piperacillin/Tazobactam/Dextrose (Zosyn) 3.375 gm in 50 mls @ 100 mls/hr IV X1 ONE Stop: 02/29/24 10:11 Last Infusion: 02/29/24 11:00 Dose: Infused Assessment & Plan Plan Jorje Roblero is 84 yr male with PMH of HTN, COPD on 3L home oxygen, left inguinal hernia repair who presents to ED today because he has been feeling week since past few days. Patient stated that for the past few days he has not been able to eat much endorsing decreased appetite and nausea with dry heaving. He has been having difficulty getting out of bed, which is not normal for patient. Also endorses having shortness of breath, fatigue, cough. Patient admitted for management of CHF exacerbation and hospital-acquired pneumonia. #Acute on chronic CHF exacerbation May be likely due to underlying CAD vs history of tobacco abuse vs history of etoh abuse Endorses having shortness of breath, fatigue, cough. Has been using oxygen at home for past 4 to 5 years. Has difficulty at baseline. CT A/P mild CHF with bilateral pulmonary edema and prominent vascular congestion. In ED, patient was given furosemide 40 mg x 2, 1 L bolus of normal saline, started on IV Zosyn. Does not appear to be on goal-directed medical therapy NYHA class III -Dr. Hartman has been consulted -echo pending -start IV Bumex 1 mg BID -hold Entresto and metoprolol succinate as BP has remained on lower side -daily weights -strict INOs -low sodium diet -restrict fluid to 1500mL -keep potassium >4, mag >2 -daily CBC, CMP #B/L HAP Hospitalized 1-2 weeks ago at [facility] underwent LHC. Complaints of cough, shortness of breath. No chest pain, fever. Lactic acid was elevated 2.4, WBC normal 9.9. CT A/P significant for pneumonia bilateral lung bases -start IV Zosyn (02/28-03/07) -Blood cultures pending ?De-escalate once resulted -Continue oxygen as needed #GHISLAINE Most likely due to cardiorenal syndrome in setting of acute CHF exacerbation vs poor oral intake which seems to be less likely as BUN/creatinine ratio is less than 20. ?Start IV 1 mg Bumex twice daily ? Daily CMP ? Avoid other nephrotoxic agents ? Avoiding maintenance fluids at this time #Transaminitis Less likely alcohol induced, ALT is greater than AST. vs drug-induced Patient denies any abdominal pain. Right upper quadrant ultrasound negative for any findings. AST 444, ALT 600, alk phos 129 -continue to monitor -daily CMP #Troponinemia NSTEMI type II demand ischemia Patient has history of CAD with a recent hospitalization to [facility] after presenting with typical chest pain. Patient underwent left heart catheter. Family refused to have patient undergo CABG. EKG in ED showed no acute ischemic changes Troponin trends have been uptrending. 0.06--0.07--third set is pending #History hypertension Home medication includes furosemide 40 mg daily, spironolactone 25 mg daily, nitroglycerin 0.4 mg as needed -Hold all antihypertensives at this time due to soft blood pressure #History of GERD Start home medication omeprazole 20 mg p.o. daily #History CAD -Does not appear to be on any statins -Aspirin 81 mg p.o. daily -In need of CABG but patient's family has refused Health maintenance: Dispo: CHF, HAP DVT prophylaxis: Subcu heparin CODE STATUS: DNR/DNI-okay for BiPAP Diet: regular Contact daughter Irma for questions--[phone] The patient's management plan was discussed with my attending physician Dr. Merida and senior Dr. Florian. Angelina Armando, PGY-1 Attending Provider Attestation/Addendum I have examined the patient, reviewed labs and imaging findings, discussed the case with the resident(s), and reviewed entered orders. I agree with the plan of care as outlined in this note, with these additional summaries/recommendations: Patient is a 84-year-old male with a medical history of CAD, multivessel disease, HFrEF, CKD, GERD, COPD on 3 L home O2 intermittently, and chronic pain who presents to [facility] medical emergency department on 02/29/2024 with chief complaint of generalized weakness and shortness of breath. Patient and daughter seen at bedside. Daughter's name is irma. She reports patient was recently hospitalized at [facility] approximately 2-1/2 weeks ago for pneumonia and heart problems. Patient reportedly received cardiac catheterization and was told he would need open heart surgery for multivessel disease although family declined. They report they recently started following cardiology Dr. Hartman. Irma reports patient is currently DNR and would like to be notified before proceeding with any escalation of care. If patient does not improve with treatment she will consider initiating hospice. # Acute on chronic hypoxic respiratory failure: Baseline 3L NC # Acute on chronic systolic heart failure exacerbation #Left Pleural Effusion Presented with shortness of breath, BNP > 3280 CXR: Moderate enlargement cardiac contour with prominent vascular congestion CT Chest: Mild CHF with bilateral pulmonary edema and or prominent vascular congestion 12/20/19 Echo: Ejection fraction of 40 to 45% Not a candidate for afterload reduction with ABE or ARB at this time given renal function and hypotension Not a candidate for neurohormonal blockade with soft blood pressure We will proceed with preload reduction with fluid restriction and IV diuresis Strict I's and O's and Conner catheter in place, monitor urinary output Repeat echocardiogram ordered Consult cardiology, recommendations appreciated Unable to titrate GDMT at this time and will continue aggressive diuresis as blood pressure allows # Hospital-acquired pneumonia Recent hospitalization at [facility] approximately 2 to 2-1/2 weeks ago CX shows pneumonia left base and CT significant pneumonia at lung bases Blood cultures taken, follow-up results when available Continue IV Zosyn #GHISLAINE on CKD # Hyperkalemia Acute kidney injury likely secondary to cardiorenal syndrome On admission CR 2.6 and BUN 50 ( 1 week prior Cr 1.9) Renally dose medications and avoid nephrotoxic agents Plan: We will proceed with aggressive diuresis for hyperK/ghislaine and if renal function worsens then we will consult nephrology # Transaminitis Most likely secondary to congestive hepatopathy On admission T. bili 1.2, AST 444, ALT 600, ALP 129 Gallbladder ultrasound showed normal gallbladder, normal CBD 10.4 cm smooth contour Avoid hepatotoxic agents We will proceed with aggressive diuresis and monitor for improvement # Troponinemia # CAD # Multivessel disease Recently underwent cardiac catheterization at [facility] and was told patient would require open heart surgery although patient and family declined Troponin elevated to 0.06 Continue to trend troponins every 6 hours or until downtrend Continue aspirin 81 mg p.o. daily monotherapy Nitroglycerin as needed if chest pain develops -Cardiology consulted and recommendations appreciated # COPD No wheezing noted on exam As needed breathing treatments Wean oxygen as tolerated #Lactic Acidosis Mild Likely type B from injury +/- type a from heart failure Continue to monitor Dr. Merida
[2024-02-29 15:37] LABS: Magnesium 1.9 mg/dL (1.6-2.6)
--- NOTE | 2024-02-29 15:54 | PC.NURSE ---
spoke to Dr. Lopez. informed him that pt's magnesium level is 1.9 and repeat trop 0.07. informed him that pt's is still the frequent pvc's but runs are not as long as before. no new orders received.
--- NOTE | 2024-02-29 16:15 | ESCONSULT_ITS ---
HPI Data of Consult Patient: new to practice Consult date: 02/29/24 Requesting Physician: Reji Merida MD Admitting Provider: Reji Merida MD Attending Provider: Reji Merida MD Primary Care Provider: Paul Rodgers MD Consult Narrative Reason for consult: weakness, CHF exacerbation History of present illness: HISTORY OF PRESENT ILLNESS : Patient is a poor historian and majority of history was obtained from his Delia and son El. Patient is an 84-year-old male with a past medical history significant for severe calcified CAD involving the ostial LAD as well as the diagonal 1 with the distal left main was presumed to be high risk PCI as well as for CABG and family opted for conservative treatment in January 2024, essential hypertension, chronic systolic heart failure with reduced ejection fraction [40-45% from 2020], CAD, hyperlipidemia, COPD on 3L home oxygen,CKD stage IV with a baseline creatinine between 2.2?2.4, ex-smoker with more than 30?75-[id number]-[id number] smoking history. 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 Pedroza and was seen by Dr. Hartman during his last admission at [facility] Patient presented to the ED last night with a chief complaint of decreased appetite for 1 week. His decreased appetite was also associated with weakness, but unable to determine any weight loss. Patient denies any chest pain/pressure palpitations or SOB. Patient endorses a 3 pillow orthopnea but denies any PND or leg swelling. Patient also endorses intermittent leg cramps which wake him up from sleep but denies any intermittent claudication. Patient also endorses a cough productive of white sputum for the past couple of weeks with no relief. Denies any sick contacts, fever, recent travel. Patient also endorses dizziness upon standing too quickly which goes away after a few seconds. Of note patient was hospitalized 1 month ago at [facility] for pneumonia and Cardiology Dr. Hartman was consulted. Left heart cardiac catheterization completed on 01/22/2024 showed moderate to severe stenosis of the ostial LAD 70% as well as moderate stenosis of the ostial ramus 50% but rest of the arteries only showed mild disease. Also appears to be significant Junk of nodular calcium at the distal left main at the bifurcation of the LAD causing the stenosis. Severely low EF approximately 25%. Patient will need rotablation with Impella support to perform percutaneous intervention which was explained in detail to the patient as well as the daughter. Also explained the possibility of CKD stage IV worsening and need for possible dialysis. The family did not want any complex procedures as the patient is doing well and wished for medical treatment. CT surgery was also consulted for possible CABG given the medium to large LAD as well as the diagonal and if a mid CAB Option could be offered for the patient. Patient was deemed to be a high surgical risk given his severely low EF, highly calcified porcelain aorta this is easily visualized on the cath itself along with his age and multiple other comorbidities. CT surgery recommended to continue with aggressive medical management for now. Patient received 48 hours heparin drip for NSTEMI. Patient was discharged on furosemide 40 Mg p.o. daily and spironolactone 25 Mg p.o. daily. ED course: Blood pressure 119/85, pulse 110, SpO2 98% on 6L via NC. EKG showed sinus tachycardia, rate 106 with LBBB. Chest x-ray was significant for increased vascular markings bilaterally, pulmonary edema and bibasilar consolidation. CT C/A/P were significant for 4.3 cm ascending thoracic aortic aneurysm, enlarged pulmonary artery 3.1 cm, calcified LAD with significant bilateral pulmonary edema and pneumonia at lung bases. Labs were significant for BUN 50 ,CR 2.6, K5.6, lactic acid 2.4, AST 444, ALT 600, ALP 129, troponin 0.06, BNP >3280. Patient received furosemide 40 Mg IV x 2, calcium gluconate 1 g IV x 1, mag sulfate 2 g IV x 1 , Zosyn 3.375 g IV x 1 and normal saline IVF 1L x 1. Patient was admitted for acute respiratory failure with hypoxia secondary to CHF exacerbation and bilateral pneumonia. Cardiology was consulted. HOME MEDICATIONS: ? Aspirin 81 Mg p.o. daily ? Furosemide 40 Mg p.o. daily ? Meloxicam 7.5 Mg p.o. twice daily as needed ? Nitroglycerin 0.4 Mg SL as needed ? Omeprazole 20 Mg p.o. daily ? Spironolactone 25 Mg p.o. daily cc:: cc: Reji Merida MD Review of Systems Review of Systems Narrative Review of Systems: GENERAL: Denies fever/chills or diaphoresis. HEENT: Denies headaches or visual changes. Denies discharge. Neuro: Denies unusual weakness or difficulty speaking. CARDIO: as above PULM: as above GI: Denies abdominal pain, N/V/C/D. Reports having BMs. URO: Denies buring/itching/pain/urinary changes. MSK/EXT/SKIN: Denies joint/skeletal/muschle pain, issues/changes in upper or lower extremities, itchiness, or superficial pain. PSYCH: Cooperative, pleasant mood & affect. The rest of the review of systems is otherwise negative. Past Medical History Past Medical History Comments PMH COMMENT: Past medical history: ? Essential hypertension ? Chronic systolic heart failure with reduced ejection fraction ? CAD ? Hyperlipidemia ? COPD - CKD stage IV ? LBBB Past surgical history: ? Left inguinal hernia repair [2022] Allergies: ? Lidocaine: Anaphylaxis Social history: Occupational History: Retired. Previously worked packaging [employer] Education Level: Graduated High school Marital Status: with 3 kids Tobacco use: 30-40 pack year history. Quit 10 years ago ETHO use: Quit 3 years ago, previously drank alcohol heavily Illicit drug use: Denies Social History Note: lives with alone. At baseline can walk around with O2 and a walker but requires assistance for some ADLs Exam Vital Signs Temp Pulse Resp BP Pulse Ox O2 Del Method O2 Flow Rate 97.6 F 109 H 20 104/89 H 100 Nasal Cannula 3 02/29/24 13:11 02/29/24 15:14 02/29/24 15:14 02/29/24 13:11 02/29/24 15:14 02/29/24 13:11 02/29/24 15:14 Narrative Exam Constitutional Alert, oriented x 3 and comfortable. Elderly male, cachectic, on O2 via nc HEENT Vision grossly intact. Patent nares. Trachea midline Respiratory Chest normal on inspection and decreased breath sounds throughout lung fritz b/l, crackles at bases Cardiovascular S1 and S2 audible, RRR. No murmurs carotid bruit. JVD elevated Abdominal Soft and non tender to palpation in all quadrants. BS + Genitourinary No bladder tenderness, no flank pain. Normal to palpation Musculoskeletal Extremities tone within normal limits. Trace LE edema. Neurological CN II - XII grossly intact. Extremity motor and sensation grossly intact. Skin Warm, dry and intact. No apparent lesions. Psychiatric Patient has good affect, is cooperative Results Labs 02/29/24 08:38 02/29/24 14:02 Labs: Short CBC 02/29/24 Range/Units 08:38 WBC 9.9 (3.8-10.6) Thou/mm3 Hgb 12.4 L (13.5-16.0) g/dL Hct 37.9 L (41.0-53.0) % Plt Count 212 (140-440) Thou/mm3 BMP 02/29/24 02/29/24 08:38 14:02 Sodium 135 L Potassium 5.6 H 5.3 H Chloride 102 Carbon Dioxide 21.2 BUN 50 H Creatinine 2.6 H Glucose 112 H Calcium 10.1 Cardiac Enzymes 02/29/24 02/29/24 Range/Units 08:38 14:48 Troponin I 0.060 H* 0.070 H* (0.0-0.045) ng/mL Liver Function 02/29/24 Range/Units 08:38 Total Bilirubin 1.2 (0.3-1.2) mg/dL AST 444 H (0-34) U/L ALT 600 H* (10-49) U/L Alkaline Phosphatase 129 H (46-116) U/L Albumin 4.4 (3.4-4.8) gm/dL Urine 02/29/24 Range/Units 11:42 Urine Color Yellow (Lt Yel-Yel) Urine Clarity Clear (Clear/Hazy) Urine pH 5.5 (5.0-7.0) Ur Specific [place] 1.022 (1.001-1.035) Urine Protein 1+ A (Neg - Trace) Urine Glucose (UA) Negative (Negative) Quality Measures Quality Measures none Advance care planning discussed with:: patient and child Medications Home Medications and Allergies Home Medications ?Medication ?Instructions ?Recorded ?Confirmed ?Type omeprazole 20 mg capsule,delayed 20 mg PO QDAY 12/20/19 02/29/24 History release meloxicam 7.5 mg tablet 7.5 mg PO BID PRN Pain 02/16/23 02/29/24 History tramadol 50 mg tablet 50 mg PO Q8H PRN Pain 02/16/23 02/29/24 History aspirin 81 mg tablet,delayed 81 mg PO QDAY 02/29/24 02/29/24 History release furosemide 40 mg tablet 40 mg PO QDAY 02/29/24 02/29/24 History nitroglycerin 0.4 mg sublingual 0.4 mg buccal [id number] PRN Chest 02/29/24 02/29/24 History tablet Pain spironolactone 25 mg tablet 25 mg PO QDAY 02/29/24 02/29/24 History Allergies Allergy/AdvReac Type Severity Reaction Status Date / Time lidocaine Allergy Intermediate Unresponsiv Verified 02/29/24 07:55 e Visit Medications Acetaminophen (Acetaminophen 325 Mg Tablet) 650 mg PO Q6H PRN PRN Reason: Fever >100.3 or pain Stop: 03/30/24 13:39 Albuterol/Ipratropium (Albuterol/Ipratropium (Duoneb) Rt Gretchen 3 Ml Nebu) 3 ml INH Q6HRRT PRN PRN Reason: COUGH Stop: 03/30/24 18:59 Aspirin (Aspirin Ec 81 Mg Tabec) 81 mg PO QDAY [facility] Stop: 03/31/24 08:59 Bumetanide (Bumetanide Inj 0.25 Mg/Ml Vial 4 Ml) 1 mg IVP BIDD LUCERO Stop: 03/30/24 17:59 Heparin Sodium (Porcine) (Heparin Sod Inj 5000 Unit/Ml Vial) 5,000 unit SC Q12HR LUCERO Stop: 03/14/24 20:59 Piperacillin/Tazobactam/Dextrose (Zosyn) 50 mls @ 100 mls/hr IV Q6HR LUCERO Stop: 03/07/24 15:59 Ondansetron HCl (Ondansetron Inj 2 Mg/Ml Inj 2 Ml) 4 mg IV Q6H PRN; Protocol PRN Reason: NAUSEA OR VOMITING Stop: 03/30/24 13:39 Pantoprazole Sodium (Pantoprazole 20 Mg Tablet) 20 mg PO QDAY [facility] Stop: 03/31/24 08:59 Discontinued Medications Furosemide (Furosemide Inj 10 Mg/Ml 4ml Vial) 40 mg IVP X1 ONE Stop: 02/29/24 11:18 Last Admin: 02/29/24 11:33 Dose: 40 mg Furosemide (Furosemide Inj 10 Mg/Ml 4ml Vial) 40 mg IVP X1 ONE Stop: 02/29/24 12:48 Last Admin: 02/29/24 13:06 Dose: 40 mg Sodium Chloride (Ns) 1,000 mls @ 999 mls/hr IV .Q1H1M ONE Stop: 02/29/24 09:47 Last Infusion: 02/29/24 11:15 Dose: Infused Piperacillin/Tazobactam/Dextrose (Zosyn) 3.375 gm in 50 mls @ 100 mls/hr IV X1 ONE Stop: 02/29/24 10:11 Last Infusion: 02/29/24 11:00 Dose: Infused Assessment & Plan Plan Patient is an 84-year-old male with a past medical history significant for essential hypertension, chronic systolic heart failure with reduced ejection fraction [40-45% from 2020], CAD, hyperlipidemia, COPD on 3L home oxygen. Patient previously followed up with police officer Dr. Pedroza now follows up with Dr. Hartman. Patient presented to the ED last night with a chief complaint of decreased appetite for 1 week. Patient was admitted for acute respiratory failure with hypoxia secondary to CHF exacerbation and bilateral pneumonia. Cardiology was consulted. 1. Acute on chronic respiratory failure with hypoxia Secondary to 2. Acute decompensated chronic systolic heart failure with reduced ejection fraction [<20%] 3. Cardiorenal syndrome Patient is on 3L oxygen at home. On this admission patient presented with decreased appetite as well as a productive cough for approximately 2 weeks. Patient had a recent hospitalization at [facility] last month with a complaint of shortness of breath and chest pain and was treated for pneumonia and NSTEMI type II. Patient's home diuretic Lasix 40 Mg p.o. daily and spironolactone 25 Mg p.o. daily Patient previous echo from last month and left heart cath estimated EF around 25% Transthoracic echocardiogram completed on 02/29/2024 findings include: Dilated cardiomyopathy. Moderatelly dialted LV, RV and RA. Severely dilated LA Severe LV systolic dysfunction with Severe global hypokinesis.Estimated EF < 20%. Septal and lateral wall dysnchrony due to LBBB. Diastolic dysfunction present bbut cannot grade due to severe MAC Mild RV systolic dysfunction. Estimated RVSP 68mmHg. Moderate to severe PAH Severe MAC. Moderate MR and TR. Trace AI. Mild AV sclerosis without stneosis. IVC dilated. NYHA stage C class III BNP >3280 on admission AST 444, ALT 600, ALP 129 indicating hepatic congestion and possible cardiorenal syndrome. Plan: ? Strict input output charting ? Daily weight ? 1500 cc fluid restriction ? 2 g sodium restricted diet ? Recommend Bumex 1 Mg IV twice daily 4. Coronary artery disease Left heart cardiac catheterization completed on 01/22/2024 showed moderate to severe stenosis of the ostial LAD 70% as well as moderate stenosis of the ostial ramus 50% but rest of the arteries only showed mild disease. Also appears to be significant Ashley nodular calcium at the distal left main at the bifurcation of the LAD causing the stenosis. Severely low EF approximately 25%. Patient will need rotablation with Impella support to perform percutaneous intervention which was explained in detail to the patient as well as the daughter. Also explained the possibility of CKD stage IV worsening and need for possible dialysis. The family did not want any complex procedures as the patient is doing well and wished for medical treatment. CT surgery was also consulted for possible CABG given the medium to large LAD as well as the diagonal and if a mid Option could be offered for the patient. Patient was deemed to be a high surgical risk given his severely low EF, highly calcified porcelain aorta this is easily visualized on the cath itself along with his age and multiple other comorbidities. CT surgery recommended to continue with aggressive medical management for now. Plan: ? Continue ASA 81 Mg p.o. daily 5. LBBB 6. NSVT 7. Atrial fibrillation?paroxysmal Patient denies any symptoms of palpitations, SOB or dizziness EKG on admission showed sinus tachycardia, rate 106 with LBBB. Patient appears to also have LBBB on his previous EKGs from chart review. On telemetry review in the ED patient had several rounds of NSVT <30 seconds also alternated in and out of A-fib. Patient not known to have atrial fibrillation from before and not on any rate or rhythm control medication at home. [id number]: 5 points; 7.2% stroke risk per year [age, sex, CHF, HTN, CAD] HAS-BLED : 5 points; high risk of bleeding Plan: ? Repeat EKG ? Start amiodarone infusion with loading dose for rhythm control to prevent atrial fibrillation ? Patient currently on heparin drip for NSTEMI type II ? To start patient on Eliquis after 48 hours of heparin infusion ? Patient will need to be started on rate control with metoprolol XL once blood pressure allows. ? Please maintain potassium greater than 3.5 as patient is CKD and magnesium greater than 2 at all times to prevent any further arrhythmias 8. NSTEMI type I versus type II Patient denies any symptoms of chest pain/pressure or palpitations. On admission troponin 0.06 and up trended to 0.07 possibly in the setting of aspiration pneumonia. Likely supply/demand mismatch. EKG showed sinus tachycardia, rate 106 with [address]. No acute ST changes Plan: ? Recommend heparin infusion for 48 hours ? Recommend to continue ASA 81 Mg p.o. daily 9. Essential hypertension On admission patient's BP 119/85 currently BP 104/76 Home medication furosemide 40 Mg p.o. daily and spironolactone 25 Mg p.o. daily Plan: ? Continue Bumex 1 Mg IV twice daily ? Can restart spironolactone later on as part of GDMT 10. GHISLAINE on CKD stage IV Patient's baseline CR 2.2?2.4. On admission CR 2.6 Continue management as per primary team 11. Ascending thoracic aorta aneurysm Currently patient denies any chest pain/pressure or palpitations and blood pressure is currently 104/76 CT C/A/P on admission showed a 4.3 cm ascending thoracic aorta aneurysm Plan: ? Recommend interval CT scan at 6 months to reassess 12. Hyperlipidemia Patient's last lipid profile from May 2023 showed triglycerides 69, cholesterol 143 and LDL 92. Currently patient has severe transaminitis. It is okay to hold statin for now 13. Aspiration pneumonia Patient is currently confused and alternates between lucid intervals. Patient endorses a productive cough for the past 2 weeks and is at high risk for aspiration. Chest x-ray on admission was significant for increased vascular markings, pulmonary edema and bibasilar consolidation. Patient was started on Zosyn renal dose and sputum culture were ordered. Continue management as per primary team 14. Transaminitis AST 444, ALT 600 and ALP 129. Most likely in the setting of cardiorenal syndrome with congestive hepatopathy All of the above was discussed with patient's son and daughter who is retired surgical instrument repair specialist at [employer], at bedside. Family agree with current management and wish to continue with DNR/DNI status. Family also declined any electrical cardioversion or defibrillation if patient goes into cardiac arrest. Continue rest of management as per primary team. We are grateful to be able to participate in Mr. Flower's care. Thank you for the consult Plan of care discussed with attending Metal Furrer, Dr Minnie Issa MD PGY 1 Attending Provider Attestation/Addendum I have personally seen and examined the patient separately on the above date of service and discussed the plan of care with the resident. I reviewed the resident Dr. Issa consultation note and agree with the resident findings and plan in the note above and have also edited the documentation to reflect my findings and plan. 84-year-old male with a past medical history significant for severe calcified CAD involving the ostial LAD as well as the diagonal 1 with the distal left main was presumed to be high risk PCI as well as for CABG and family opted for conservative treatment in January 2024, essential hypertension, chronic severe systolic heart failure with reduced ejection fraction less than 25%, hyperlipidemia, COPD on 3L home oxygen,CKD stage IV with a baseline creatinine between 2.2?2.4, ex-smoker with more than 30?71-azio-[id number] smoking history presented to the emergency department. Patient presented to the ED last night with a chief complaint of decreased appetite for 1 week associated with some shortness of breath along with dizziness 14 and can chest pain or chest pressure. Patient also did have orthopnea of 3 pillows. Denies any kind of PND. 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 Pedroza and was seen by me during his last admission at [facility] January 2024. Patient known to me from previous admission at [facility] in January 2024 when he presented with an NSTEMI with a peak troponin up to 17. I did perform cardiac catheterization for the patient during that admission and final impression was Left heart cardiac catheterization completed on 01/22/2024 showed moderate to severe stenosis of the ostial LAD 70% as well as moderate stenosis of the ostial ramus 50% but rest of the arteries only showed mild disease. Also appears to be significant Ashley nodular calcium at the distal left main at the bifurcation of the LAD causing the stenosis. Severely low EF approximately 25%. Patient will need rotablation with Impella support to perform percutaneous intervention which was explained in detail to the patient as well as the daughter. Also explained the possibility of CKD stage IV worsening and need for possible dialysis. The family did not want any complex procedures as the patient is doing well and wished for medical treatment. CT surgery was also consulted for possible CABG given the medium to large LAD as well as the diagonal and if a mid CAB Option could be offered for the patient. Patient was deemed to be a high surgical risk given his severely low EF, highly calcified porcelain aorta this is easily visualized on the cath itself along with his age and multiple other comorbidities. CT surgery recommended to continue with aggressive medical management for now. Patient received 48 hours heparin drip for NSTEMI. Patient was discharged on furosemide 40 Mg p.o. daily and spironolactone 25 Mg p.o. daily. Patient was discharged and recommended to follow-up with his regular police officer Dr. Pedroza and was never seen in my office since then. ED course: Blood pressure 119/85, pulse 110, SpO2 98% on 6L via NC. EKG showed sinus tachycardia, rate 106 with LBBB. Chest x-ray was significant for increased vascular markings bilaterally, pulmonary edema and bibasilar consolidation. CT C/A/P were significant for 4.3 cm ascending thoracic aortic aneurysm, enlarged pulmonary artery 3.1 cm, calcified LAD with significant bilateral pulmonary edema and pneumonia at lung bases. Labs were significant for BUN 50 ,CR 2.6, K5.6, lactic acid 2.4, AST 444, ALT 600, ALP 129, troponin 0.06, BNP >3280. Patient received furosemide 40 Mg IV x 2, calcium gluconate 1 g IV x 1, mag sulfate 2 g IV x 1 , Zosyn 3.375 g IV x 1 and normal saline IVF 1L x 1. Patient was admitted for acute respiratory failure with hypoxia secondary to CHF exacerbation and bilateral pneumonia. Cardiology was consulted nonsustained VT and elevated troponins. Recommendations: ---NSVT and question of atrial fibrillation-reviewed the EKG patient does have baseline left bundle branch block known for many years and that he appears to be in sinus tachycardia and at times junctional tachycardia and frequent PACs or PVCs. Also had a few runs of NSVT but not lasting more than 30 seconds. Patient does have a history of dilated cardiomyopathy with an ejection fraction less than 20% during today's echo. Patient is at risk for ventricular tachycardia and given his severely low EF. Telemetry a appeared to show patient is in atrial fibrillation with repeat EKG showed only junctional tachycardia. Recommend to start the patient on amiodarone bolus along with him with 1 drip as per the protocol. Magnesium is 1.9 recommended to give 4 g magnesium sulfate IV for now. Potassium is elevated and patient is receiving hyperkalemic treatment. Continue to monitor on telemetry along with electrolytes and continue amiodarone drip for now. If blood pressure tolerable then patient should be started on low-dose metoprolol tartrate 12.5 mg twice daily which can be later on transition to metoprolol XL 25 mg once daily once patient blood pressure is more stable. ---Patient appears to be in acute on chronic severe CHF exacerbation. Patient does have elevated LFTs with AST and ALT of 444 and 600. BNP is greater than 3280. Chest x-ray shows possible pulmonary edema and vascular congestion. Also kidney function is elevated with a creatinine up to 2.6. Patient has possible cardiorenal syndrome with hepatic congestion given the severely reduced ejection fraction along with biventricular failure as noted in the echocardiogram below. Recommend to give Lasix 80 mg x 1 or Bumex 2 mg IV x 1 for now and monitor the strict input output, daily weights and 2 g sodium diet. Echocardiogram completed on 03/01/2024 showed Dilated cardiomyopathy. Moderatelly dialted LV, RV and RA. Severely dilated LA Severe LV systolic dysfunction with Severe global hypokinesis.Estimated EF < 20%. Septal and lateral wall dysnchrony due to LBBB. Diastolic dysfunction present bbut cannot grade due to severe MAC Mild RV systolic dysfunction. Estimated RVSP 68mmHg. Moderate to severe PAH Severe MAC. Moderate MR and TR. Trace AI. Mild AV sclerosis without stneosis. IVC dilated --- Regarding the elevated troponins patient does have a history of severe calcified CAD involving the ostial LAD, distal left main as well as the high diagonal 1 or ramus as noted above by cardiac catheterization in January 2024. Patient is high risk candidate for CABG or even a MIDCAB operation as per the surgeons seen at [facility] given patient's age and multiple comorbidities and also the porcelain aorta noted during the catheter performed. Will patient was also recommended complex PCI with possible Impella support and the risk of acute on chronic kidney injury and dialysis. Patient did offer only medical treatment after discussion with the daughter. Recommended heparin drip for now of for at least 48 hours if the troponins continue to be elevated. Aspirin statin and beta-zev if blood pressure is permissible. --- Patient CODE STATUS is DNR with DNI and recommend only medical treatment for now which is the same which expressed during the last hospitalization at [facility]. Will continue medical treatment at this point of time. Poor prognosis explained to the daughter as well as the son at the bedside. Management of rest of the medical conditions as per primary team and other consultants. Thank you for the consult and allowing me to participate in the care of the patient. Cardiology will continue to follow. Damian Hartman M.D. Interventional Cardiology Patient apparently Damian Hartman M.D. Interventional Cardiology
--- NOTE | 2024-02-29 16:43 | PC.NURSE ---
dr castro cardiology at bedside to see pt
[2024-02-29] MEDS: CALCIUM GLUCONATE 10% INJ 1 GM/10 ML VIAL IV (16:53)
[2024-02-29] MEDS: Magnesium Sulfate 2 GM Ivpb 2 GM/50 ML BAG IV (16:56)
[2024-02-29] MEDS: PIPER/TAZO 3.375 GM 50 ML IV (17:38)
[2024-02-29] MEDS: SOD POLYSTYRENE SULFON SUSP 15 GM/60 ML BTL 10 GM PO (17:39)
[2024-02-29] MEDS: ONDANSETRON INJ 2 MG/ML INJ 2 ML 4 MG IV (18:02)
--- NOTE | 2024-02-29 18:33 | PC.NURSE ---
report given to Radha on Tele floor. pt to go to room 279
--- NOTE | 2024-02-29 18:45 | PC.NURSE ---
Dr Jacobs at bedside
[2024-02-29] MEDS: BUMETANIDE INJ 0.25 MG/ML VIAL 4 ML 1 MG IVP (19:19)
[2024-02-29] MEDS: AMIODARONE 150 MG IVPB 150 MG/100 ML BAG 600 MG IV (20:22)
[2024-02-29] MEDS: AMIODARONE 360 MG IVPB 360 MG/200 ML BAG 33.333 MG IV (20:32)
[2024-02-29] MEDS: HEPARIN SOD INJ 5000 UNIT/ML VIAL 4000 UNIT IV (20:41)
[2024-02-29] MEDS: Heparin/D5w 25K 250 ML Ivpb 25,000 UNIT/250 ML BAG 9.09 UNIT IV (20:43)
[2024-03-01] VITALS (12 sets, daily range): BP systolic 101–133; BP diastolic 64–91; PULSE 63–113; RESP 16–35; TEMP 36.1–36.7; O2SAT 92–100
[2024-03-01] MEDS: PIPER/TAZO 3.375 GM 50 ML IV ×3 (00:21→12:42)
[2024-03-01 01:25] LABS: Alcohol, Urine Negative (Negative); Amphetamine/Methamp Scrn,U Negative (Negative); Barbiturate Screen,Urine Negative (Negative); Benzodiazepines Screen,Urine Negative (Negative); Benzoylecgonine Screen, Ur Negative (Negative); Fentanyl Screen,Urine Negative (Negative); Opiate Screen,Urine Negative (Negative); THC Screen,Urine Negative (Negative)
[2024-03-01] MEDS: ALBUTEROL/IPRATROPIUM (Duoneb) RT SOL 3 ML NEBU INH (01:57)
[2024-03-01] MEDS: AMIODARONE 360 MG IVPB 360 MG/200 ML BAG 16.667 MG IV (02:16)
[2024-03-01 03:14] LABS: Basophils % (Auto) 0 % (0-2.5); Eosinophils % (Auto) 0 % (0-10); Hematocrit 37.7 % (41.0-53.0); Hemoglobin 12.3 g/dL (13.5-16.0); Immature Granulocytes % (Auto) 1 % (0-0); Immature Granulocytes Auto 0.07 Thou/mm3 (0.00-0.00); Lymphocytes # (Auto) 1.1 Thou/mm3 (1.0-4.8); Lymphocytes % (Auto) 8 % (10-50); Mean Corpuscular HGB Conc 32.6 g/dl (31.0-37.0); Mean Corpuscular Hemoglobin 28.7 pg (25.0-35.0); Mean Corpuscular Volume 88 fL (80-100); Monocytes # (Auto) 2.2 Thou/mm3 (0.0-0.8); Monocytes % (Auto) 15 % (0-12); Neutrophils # (Auto) 11.5 Thou/mm3 (1.8-7.7); Neutrophils % (Auto) 77 % (37-80); Nucleated Red Blood Cell % 0 /100 WBC (0); Platelet Count 204 Thou/mm3 (140-440); RDW Standard Deviation 48.1 fL (35.1-43.9); Red Blood Count 4.29 Miln/mm3 (4.50-5.90)
[2024-03-01 03:22] LABS: White Blood Count 14.9 Thou/mm3 (3.8-10.6)
[2024-03-01 03:35] LABS: Partial Thromboplastin Time 43.6 Seconds (22.0-36.0)
[2024-03-01 03:50] LABS: Path Review Blood Smear Sent to Pathologist
[2024-03-01 03:55] LABS: Albumin, Serum 4.2 gm/dL (3.4-4.8); Albumin/Globulin Ratio 1.5 (1.2-2.2); Alkaline Phosphatase 118 U/L (46-116); Anion Gap 15 (7-16); BUN/Creatinine Ratio 17 Ratio (12-20); Bilirubin,Total 1.5 mg/dL (0.3-1.2); Blood Urea Nitrogen 58 mg/dL (9-23); Calcium 9.6 mg/dL (8.3-10.6); Calcium (Corrected) 9.6 mg/dL (8.5-10.1); Carbon Dioxide 17.3 mMol/L (20.0-31.0); Chloride 100 mMol/L (98-107); Creatinine (Component) 3.4 mg/dL (0.6-1.3); Estimated Creatinine Clearance 16.7 mL/min (>60); Globulin 2.8 gm/dL (2.3-3.5); Glucose 157 mg/dL (74-106); Magnesium 2.3 mg/dL (1.6-2.6); Osmolality,Calculated 283 (275-295); Phosphorous 6.4 mg/dL (2.4-5.1); Potassium 5.6 mMol/L (3.4-5.1); Sodium 132 mMol/L (136-145); eGFR 17 See Note
[2024-03-01 04:01] LABS: Alanine Aminotransferase 1998 U/L (10-49); Aspartate Amino Transferase 1818 U/L (0-34)
[2024-03-01] MEDS: HEPARIN SOD INJ 5000 UNIT/ML VIAL 2000 UNIT IV (04:34)
[2024-03-01] MEDS: BUMETANIDE INJ 0.25 MG/ML VIAL 4 ML 1 MG IVP (05:35)
[2024-03-01] MEDS: ASPIRIN EC 81 MG TABEC PO (09:09)
[2024-03-01] MEDS: PANTOPRAZOLE 20 MG TABLET PO (09:09)
[2024-03-01] MEDS: METOPROLOL TARTRATE 25 MG TABLET 12.5 MG PO (09:09)
[2024-03-01] MEDS: PATIROMER CALCIUM 8.4 GM PACKET (NON-FORM) PO (09:34)
[2024-03-01] MEDS: SODIUM CHLORIDE 0.9% 1000 ML 1,000 ML 80 ML IV ×2 (09:35→22:57)
[2024-03-01 09:56] LABS: Lactate (Lactic Acid) 3.3 mMol/L (0.4-2.0)
--- NOTE | 2024-03-01 10:06 | PC.SS ---
Patient is altered. 1:1 sitter. Patient's family at bedside. present and son. states patient resides with her. She's been the main careprovider for the last year. Daughter is a retired nurse and will assist in planning and care. Patient is a DNR. Family states patient is on 02 at home ([facility]). Patient's daughter provides transportation to all appointments. Patient was ambulatory until recently. Patient has slowly decreased mobility. Now mostly bedridden. Patient was using his walker and cane at home. Now, he may need a wheelchair. Patient's son states his sister was discussing wanting homehealth services upon discharge. SS will discuss further with family. Patient follows with Dr. Rojo for Nephrology. PCP: Dr. Rodgers and last appt was a week ago. Dc plan remains to return home. Alt medical decision maker is Delia hsieh. transport: [facility] d/c plan: alt medical decision maker: , Pat, [phone] and #2, Margy, daughter,
[2024-03-01] MEDS: traMADol HCL 50 MG TABLET PO (10:15)
--- NOTE | 2024-03-01 10:26 | ESPR_ITS ---
Documentation for date of: 03/01/24 Subjective Subjective Interval history: Patient was seen and examined at bedside this AM. Overnight Patient had episode of confusion and was pulling at his lines and was placed on light restraints. Patient currently back to baseline and alert and oriented x 3 Patient tolerating diet, adequate urine output and mentation is at baseline. Patient endorses improvement of SOB Patient had a fluid balance of +912 cc in the past 24 hours. Potassium up trended to 5.6, magnesium 2.3. Bicarb decreased to 17.3 indicating acidosis, BUN increased to 58 and CR increased to 3.4 from 2.6 Recommend to stop diuresis at this point and give gentle IV fluids for GHISLAINE and hydration AST up trended to 1800s and ALT to 1900s possibly secondary to sepsis, recommend GI consult for further evaluation Exam Vital Signs Temp Pulse Resp BP Pulse Ox O2 Del Method O2 Flow Rate 97.2 F 81 21 H 112/78 93 L Nasal Cannula 4 03/01/24 08:00 03/01/24 09:09 03/01/24 08:00 03/01/24 09:09 03/01/24 08:00 03/01/24 08:00 03/01/24 04:00 Narrative Exam Constitutional Alert, oriented x 3 and comfortable. Elderly male, cachectic, on O2 via nc HEENT Vision grossly intact. Patent nares. Trachea midline Respiratory Chest normal on inspection and decreased breath sounds throughout lung fritz b/l, crackles at bases Cardiovascular S1 and S2 audible, RRR. No murmurs carotid bruit. JVD unable to assess Abdominal Soft and non tender to palpation in all quadrants. BS + Genitourinary No bladder tenderness, no flank pain. Normal to palpation Musculoskeletal Extremities tone within normal limits. Trace LE edema. Neurological CN II - XII grossly intact. Extremity motor and sensation grossly intact. Skin Warm, dry and intact. No apparent lesions. Psychiatric Patient has good affect, is cooperative Objective Labs 03/02/24 04:50 03/02/24 04:50 Labs: Laboratory Results - last 24 hr 02/29/24 02/29/24 02/29/24 08:38 11:42 12:32 WBC RBC Hgb Hct MCV MCH MCHC RDW Std Deviation Plt Count Neut % (Auto) Lymph % (Auto) [place] % (Auto) Eos % (Auto) Baso % (Auto) Neut # (Auto) Lymph # (Auto) [place] # (Auto) Eos # (Auto) Baso # (Auto) Immature Gran # (Auto) Absolute Nucleated RBC Immature Gran % Nucleated RBC % Smear Path Review APTT Sodium Potassium Chloride Carbon Dioxide Anion Gap BUN Creatinine Estim Creat Clear Calc eGFR BUN/Creatinine Ratio Glucose Calculated Osmolality Lactic Acid 2.4 H Calcium Corrected Calcium Phosphorus Magnesium Total Bilirubin AST ALT Alkaline Phosphatase Troponin I B-Natriuretic Peptide > 3280 H* Total Protein Albumin Globulin Albumin/Globulin Ratio Ur Collection Type Catheter Urine Color Yellow Urine Clarity Clear Urine pH 5.5 Ur Specific [place] 1.022 Urine Protein 1+ A Urine Glucose (UA) Negative Urine Ketones Trace Urine Blood Negative Urine Nitrite Negative Urine Bilirubin Negative Urine Urobilinogen (Auto) Negative Ur Leukocyte Esterase Negative Urine RBC < 1 Urine WBC 1 Ur Squamous Epith Cells 0 Urine Bacteria None Urine Opiates Screen Urine Fentanyl Screen Ur Barbiturates Screen U Amphetamin/Meth Scrn U Benzodiazepines Scrn U Cocaine Metab Screen U Marijuana (THC) Screen Urine Alcohol RSV Rapid Negative 02/29/24 02/29/24 02/29/24 14:02 14:48 23:01 WBC RBC Hgb Hct MCV MCH MCHC RDW Std Deviation Plt Count Neut % (Auto) Lymph % (Auto) [place] % (Auto) Eos % (Auto) Baso % (Auto) Neut # (Auto) Lymph # (Auto) [place] # (Auto) Eos # (Auto) Baso # (Auto) Immature Gran # (Auto) Absolute Nucleated RBC Immature Gran % Nucleated RBC % Smear Path Review APTT Sodium Potassium 5.3 H Chloride Carbon Dioxide Anion Gap BUN Creatinine Estim Creat Clear Calc eGFR BUN/Creatinine Ratio Glucose Calculated Osmolality Lactic Acid Calcium Corrected Calcium Phosphorus Magnesium 1.9 Total Bilirubin AST ALT Alkaline Phosphatase Troponin I 0.070 H* 0.130 H* B-Natriuretic Peptide Total Protein Albumin Globulin Albumin/Globulin Ratio Ur Collection Type Urine Color Urine Clarity Urine pH Ur Specific [place] Urine Protein Urine Glucose (UA) Urine Ketones Urine Blood Urine Nitrite Urine Bilirubin Urine Urobilinogen (Auto) Ur Leukocyte Esterase Urine RBC Urine WBC Ur Squamous Epith Cells Urine Bacteria Urine Opiates Screen Urine Fentanyl Screen Ur Barbiturates Screen U Amphetamin/Meth Scrn U Benzodiazepines Scrn U Cocaine Metab Screen U Marijuana (THC) Screen Urine Alcohol RSV Rapid 03/01/24 03/01/24 03/01/24 00:45 03:07 09:40 WBC 14.9 H D RBC 4.29 L Hgb 12.3 L Hct 37.7 L MCV 88 MCH 28.7 MCHC 32.6 RDW Std Deviation 48.1 H Plt Count 204 Neut % (Auto) 77 Lymph % (Auto) 8 L [place] % (Auto) 15 H Eos % (Auto) 0 Baso % (Auto) 0 Neut # (Auto) 11.5 H Lymph # (Auto) 1.1 [place] # (Auto) 2.2 H Eos # (Auto) 0.0 Baso # (Auto) 0.0 Immature Gran # (Auto) 0.07 H Absolute Nucleated RBC 0.00 Immature Gran % 1 H Nucleated RBC % 0 Smear Path Review Sent to Pathologist APTT 43.6 H D Sodium 132 L Potassium 5.6 H Chloride 100 Carbon Dioxide 17.3 L Anion Gap 15 BUN 58 H Creatinine 3.4 H D Estim Creat Clear Calc 16.7 L eGFR 17 L BUN/Creatinine Ratio 17 Glucose 157 H Calculated Osmolality 283 Lactic Acid 3.3 H Calcium 9.6 Corrected Calcium 9.6 Phosphorus 6.4 H Magnesium 2.3 Total Bilirubin 1.5 H AST 1818 H* ALT 1998 H* Alkaline Phosphatase 118 H Troponin I 0.170 H* B-Natriuretic Peptide Total Protein 7.0 Albumin 4.2 Globulin 2.8 Albumin/Globulin Ratio 1.5 Ur Collection Type Urine Color Urine Clarity Urine pH Ur Specific [place] Urine Protein Urine Glucose (UA) Urine Ketones Urine Blood Urine Nitrite Urine Bilirubin Urine Urobilinogen (Auto) Ur Leukocyte Esterase Urine RBC Urine WBC Ur Squamous Epith Cells Urine Bacteria Urine Opiates Screen Negative Urine Fentanyl Screen Negative Ur Barbiturates Screen Negative U Amphetamin/Meth Scrn Negative U Benzodiazepines Scrn Negative U Cocaine Metab Screen Negative U Marijuana (THC) Screen Negative Urine Alcohol Negative RSV Rapid Quality Measures Quality Measures none Advance care planning discussed with:: patient, spouse and child Assessment & Plan Assessment Current Active Medications: Generic Name Dose Route Start Last Admin Trade Name Freq PRN Reason Stop Dose Admin Acetaminophen 650 mg 03/01/24 10:01 Acetaminophen 325 Mg Tablet PO 03/30/24 13:39 Q6H PRN Fever >100.3 or pain 1-3 Albuterol/Ipratropium 3 ml 02/29/24 14:10 03/01/24 01:57 Albuterol/Ipratropium (Duoneb) Rt Gretchen 3 Ml Nebu INH 03/30/24 18:59 3 ml Q6HRRT PRN Administration COUGH Aspirin 81 mg 03/01/24 09:00 03/01/24 09:09 Aspirin Ec 81 Mg Tabec PO 03/31/24 08:59 81 mg QDAY LUCERO Administration Bumetanide 1 mg 02/29/24 18:00 03/01/24 05:35 Bumetanide Inj 0.25 Mg/Ml Vial 4 Ml IVP 03/30/24 17:59 1 mg BIDD LUCERO Administration Piperacillin/Tazobactam/Dextrose 50 mls @ 100 mls/hr 02/29/24 16:00 03/01/24 05:35 Zosyn IV 03/07/24 15:59 100 mls/hr Q6HR LUCERO Administration Heparin Sodium/Dextrose 25,000 unit in 250 mls @ 9.09 mls/hr 02/29/24 19:15 03/01/24 04:42 Heparin In D5w Ivpb IV 03/14/24 19:14 14 units/kg/hr .Q24H LUCERO 10.605 mls/hr Titration Protocol 12 UNITS/KG/HR Sodium Chloride 1,000 mls @ 80 mls/hr 03/01/24 09:13 03/01/24 09:35 Ns IV 03/02/24 09:12 80 mls/hr .[id number] LUCERO Administration Metoprolol Tartrate 12.5 mg 03/01/24 09:00 03/01/24 09:09 Metoprolol Tartrate 25 Mg Tablet PO 03/31/24 08:59 12.5 mg BID LUCERO Administration Ondansetron HCl 4 mg 02/29/24 13:40 02/29/24 18:02 Ondansetron Inj 2 Mg/Ml Inj 2 Ml IV 03/30/24 13:39 4 mg Q6H PRN Administration NAUSEA OR VOMITING Protocol Pantoprazole Sodium 20 mg 03/01/24 09:00 03/01/24 09:09 Pantoprazole 20 Mg Tablet PO 03/31/24 08:59 20 mg QDAY LUCERO Administration Patiromer 8.4 gm 03/01/24 09:00 03/01/24 09:34 Patiromer Calcium 8.4 Gm Packet (Non-Form) PO 12/01/24 08:59 8.4 gm QDAY LUCERO Administration Tramadol HCl 50 mg 03/01/24 10:00 03/01/24 10:15 Tramadol Hcl 50 Mg Tablet PO 03/06/24 09:57 50 mg Q8HR PRN Administration PAIN SCALE 4-10(Mod-Sev Plan Patient is an 84-year-old male with a past medical history significant for essential hypertension, chronic systolic heart failure with reduced ejection fraction [40-45% from 2020], CAD, hyperlipidemia, COPD on 3L home oxygen. Patient previously followed up with dam tender assistant Dr. Pedroza now follows up with Dr. Hartman. Patient presented to the ED last night with a chief complaint of decreased appetite for 1 week. Patient was admitted for acute respiratory failure with hypoxia secondary to CHF exacerbation and bilateral pneumonia. Cardiology was consulted. 1. Acute on chronic respiratory failure with hypoxia Secondary to 2. Acute decompensated chronic systolic heart failure with reduced ejection fraction [<20%] 3. Cardiorenal syndrome Patient is on 3L oxygen at home. On this admission patient presented with decreased appetite as well as a productive cough for approximately 2 weeks. Patient had a recent hospitalization at [facility] last month with a complaint of shortness of breath and chest pain and was treated for pneumonia and NSTEMI type II. Patient's home diuretic Lasix 40 Mg p.o. daily and spironolactone 25 Mg p.o. daily Patient previous echo from last month and left heart cath estimated EF around 25% Transthoracic echocardiogram completed on 02/29/2024 findings include: Dilated cardiomyopathy. Moderatelly dialted LV, RV and RA. Severely dilated LA Severe LV systolic dysfunction with Severe global hypokinesis.Estimated EF < 20%. Septal and lateral wall dysnchrony due to LBBB. Diastolic dysfunction present bbut cannot grade due to severe MAC Mild RV systolic dysfunction. Estimated RVSP 68mmHg. Moderate to severe PAH Severe MAC. Moderate MR and TR. Trace AI. Mild AV sclerosis without stneosis. IVC dilated. NYHA stage C class III BNP >3280 on admission AST 444, ALT 600, ALP 129 indicating hepatic congestion and possible cardiorenal syndrome. Patient endorses improvement of SOB Patient had a fluid balance of +912 cc in the past 24 hours. Potassium up trended to 5.6, magnesium 2.3. Bicarb decreased to 17.3 indicating acidosis, BUN increased to 58 and CR increased to 3.4 from 2.6 Recommend to stop diuresis at this point and give gentle IV fluids for GHISLAINE and hydration Plan: ? Strict input output charting ? Daily weight ? 1500 cc fluid restriction ? 2 g sodium restricted diet ? Hold Bumex in light of GHISLAINE - Reccomend gentle IV fluids to avoid further exacaerbation 4. Coronary artery disease Left heart cardiac catheterization completed on 01/22/2024 showed moderate to severe stenosis of the ostial LAD 70% as well as moderate stenosis of the ostial ramus 50% but rest of the arteries only showed mild disease. Also appears to be significant Ashley nodular calcium at the distal left main at the bifurcation of the LAD causing the stenosis. Severely low EF approximately 25%. Patient will need rotablation with Impella support to perform percutaneous intervention which was explained in detail to the patient as well as the daughter. Also explained the possibility of CKD stage IV worsening and need for possible dialysis. The family did not want any complex procedures as the patient is doing well and wished for medical treatment. CT surgery was also consulted for possible CABG given the medium to large LAD as well as the diagonal and if a mid Option could be offered for the patient. Patient was deemed to be a high surgical risk given his severely low EF, highly calcified porcelain aorta this is easily visualized on the cath itself along with his age and multiple other comorbidities. CT surgery recommended to continue with aggressive medical management for now. Plan: ? Continue ASA 81 Mg p.o. daily 5. LBBB 6. NSVT 7. Atrial fibrillation?paroxysmal Patient denies any symptoms of palpitations, SOB or dizziness EKG on admission showed sinus tachycardia, rate 106 with LBBB. Patient appears to also have LBBB on his previous EKGs from chart review. On telemetry review in the ED patient had several rounds of NSVT <30 seconds also alternated in and out of A-fib. Patient not known to have atrial fibrillation from before and not on any rate or rhythm control medication at home. [id number]: 5 points; 7.2% stroke risk per year [age, sex, CHF, HTN, CAD] HAS-BLED : 5 points; high risk of bleeding NSVT and question of atrial fibrillation-reviewed the EKG patient does have baseline left bundle branch block known for many years and that he appears to be in sinus tachycardia and at times junctional tachycardia and frequent PACs or PVCs. Also had a few runs of NSVT but not lasting more than 30 seconds. Patient does have a history of dilated cardiomyopathy with an ejection fraction less than 20% during today's echo. Patient is at risk for ventricular tachycardia and given his severely low EF. Telemetry a appeared to show patient is in atrial fibrillation with repeat EKG showed only junctional tachycardia. Plan: ? Continue amiodarone infusion for rhythm control to prevent atrial fibrillation ? Patient currently on heparin drip for NSTEMI type II ? To start patient on Eliquis after 48 hours of heparin infusion ? If blood pressure tolerable then patient should be started on low-dose metoprolol tartrate 12.5 mg twice daily which can be later on transition to metoprolol XL 25 mg once daily once patient blood pressure is more stable. ? Please maintain potassium greater than 3.5 as patient is CKD and magnesium greater than 2 at all times to prevent any further arrhythmias 8. NSTEMI type I versus type II Patient denies any symptoms of chest pain/pressure or palpitations. On admission troponin 0.06 and up trended to 0.07 possibly in the setting of aspiration pneumonia. Likely supply/demand mismatch. EKG showed sinus tachycardia, rate 106 with [address]B. No acute ST changes Regarding the elevated troponins patient does have a history of severe calcified CAD involving the ostial LAD, distal left main as well as the high diagonal 1 or ramus as noted above by cardiac catheterization in January 2024. Patient is high risk candidate for CABG or even a MIDCAB operation as per the surgeons seen at [facility] given patient's age and multiple comorbidities and also the porcelain aorta noted during the catheter performed. Will patient was also recommended complex PCI with possible Impella support and the risk of acute on chronic kidney injury and dialysis. Patient did offer only medical treatment after discussion with the daughter. Recommended heparin drip for now of for at least 48 hours if the troponins continue to be elevated. Aspirin statin and beta-zev if blood pressure is permissible. Plan: ? Recommend heparin infusion for 48 hours ? Recommend to continue ASA 81 Mg p.o. daily , statin and beta zev once blood pressure is permissable 9. Essential hypertension On admission patient's BP 119/85 currently BP 114/68 Home medication furosemide 40 Mg p.o. daily and spironolactone 25 Mg p.o. daily Plan: ? Continue Bumex 1 Mg IV twice daily ? Can restart spironolactone later on as part of GDMT 10. GHISLAINE on CKD stage IV Patient's baseline CR 2.2?2.4. On admission CR 2.6 Continue management as per primary team 11. Ascending thoracic aorta aneurysm Currently patient denies any chest pain/pressure or palpitations and blood pressure is currently 104/76 CT C/A/P on admission showed a 4.3 cm ascending thoracic aorta aneurysm Plan: ? Recommend interval CT scan at 6 months to reassess 12. Hyperlipidemia Patient's last lipid profile from May 2023 showed triglycerides 69, cholesterol 143 and LDL 92. Currently patient has severe transaminitis. It is okay to hold statin for now 13. Aspiration pneumonia Patient is currently confused and alternates between lucid intervals. Patient endorses a productive cough for the past 2 weeks and is at high risk for aspiration. Chest x-ray on admission was significant for increased vascular markings, pulmonary edema and bibasilar consolidation. Patient was started on Zosyn renal dose and sputum culture were ordered. Continue management as per primary team 14. Transaminitis - worsening AST 444, ALT 600 and ALP 129. Most likely in the setting of cardiorenal syndrome with congestive hepatopathy AST up trended to 1800s and ALT to 1900s possibly secondary to sepsis, recommend GI consult for further evaluation All of the above was discussed with patient's son and daughter who is retired certified surgical technologist at [employer], at bedside. Family agree with current management and wish to continue with DNR/DNI status. Family also declined any electrical cardioversion or defibrillation if patient goes into cardiac arrest. Continue rest of management as per primary team. We are grateful to be able to participate in Mr. Flower's care. Thank you for the consult Plan of care discussed with attending It Service Delivery Manager, Dr Minnie Issa MD PGY 1 Attending Provider Attestation/Addendum I have personally seen and examined the patient separately on the above date of service and discussed the plan of care with the resident. I reviewed the resident Dr. Issa consultation progress note and agree with the resident findings and plan in the note above and have also edited the documentation to reflect my findings and plan. Damian Hartman M.D. Interventional Cardiology
--- NOTE | 2024-03-01 10:41 | PD.RESPRO ---
Documentation for date of: 03/01/24 Subjective Subjective Interval history: Patient was seen and examined at bedside. Overnight patient was started amiodarone drip due to NSVT and atrial fibrillation seen on tele. However repeat AST 1817 and ALT 1997. Therefore, amiodarone drip was stopped and patient was started on metoprolol tartrate 12.5 twice daily. Echo from today shows EF less than 20% with severe global hypokinesis. Will continue Bumex 1 mg IV twice daily but urine output only 70cc since past 8 hours. Lactic acid trend worsening--3.3. Today patient is alert and oriented. Daughter Irma was at beside and and was extensively counseled on patient's prognosis. At this time family will reevaluate and considering possible home hospice. Oxygen saturation 98% via 4 L nasal cannula. CBC significant for uptrending WBC 14.9, hyperkalemia worsening 5.6, creatinine worsening 3.4. Nephrology consulted for worsening creatinine and potassium. Prelminiary blood cultures negative. Review of systems otherwise negative except what is mentioned above. Exam Vital Signs Temp Pulse Resp BP Pulse Ox O2 Del Method O2 Flow Rate 97.2 F 81 21 H 112/78 93 L Nasal Cannula 4 03/01/24 08:00 03/01/24 09:09 03/01/24 08:00 03/01/24 09:09 03/01/24 08:00 03/01/24 08:00 03/01/24 04:00 Narrative Exam General: Alert and oriented x3. No acute distress, cooperative HEENT: Atraumatic, normocephalic. No JVD noted. Mucosa moist. Cardiovascular: Normal S1 and S2. Regular rate and rhythm. +1 pitting edema Respiratory: Lungs are clear to auscultation bilaterally. No wheezing or crackles heard. Abdomen: Soft, nontender, not distended, normal bowel sounds, conner catheter Skin: Warm to touch, dry, no rashes noted Musculoskeletal: No gross injuries. Able to move all 4 extremities. Neuro: Alert and oriented x3. No focal neuro deficits. Psych: Normal affect and mood Objective Labs 03/01/24 03:07 03/01/24 13:56 Labs: Laboratory Results - last 24 hr 02/29/24 02/29/24 02/29/24 08:38 11:42 12:32 WBC RBC Hgb Hct MCV MCH MCHC RDW Std Deviation Plt Count Neut % (Auto) Lymph % (Auto) Piatt % (Auto) Eos % (Auto) Baso % (Auto) Neut # (Auto) Lymph # (Auto) Piatt # (Auto) Eos # (Auto) Baso # (Auto) Immature Gran # (Auto) Absolute Nucleated RBC Immature Gran % Nucleated RBC % Smear Path Review APTT Sodium Potassium Chloride Carbon Dioxide Anion Gap BUN Creatinine Estim Creat Clear Calc eGFR BUN/Creatinine Ratio Glucose Calculated Osmolality Lactic Acid 2.4 H Calcium Corrected Calcium Phosphorus Magnesium Total Bilirubin AST ALT Alkaline Phosphatase Troponin I B-Natriuretic Peptide > 3280 H* Total Protein Albumin Globulin Albumin/Globulin Ratio Ur Collection Type Catheter Urine Color Yellow Urine Clarity Clear Urine pH 5.5 Ur Specific Orchard 1.022 Urine Protein 1+ A Urine Glucose (UA) Negative Urine Ketones Trace Urine Blood Negative Urine Nitrite Negative Urine Bilirubin Negative Urine Urobilinogen (Auto) Negative Ur Leukocyte Esterase Negative Urine RBC < 1 Urine WBC 1 Ur Squamous Epith Cells 0 Urine Bacteria None Urine Opiates Screen Urine Fentanyl Screen Ur Barbiturates Screen U Amphetamin/Meth Scrn U Benzodiazepines Scrn U Cocaine Metab Screen U Marijuana (THC) Screen Urine Alcohol RSV Rapid Negative 02/29/24 02/29/24 02/29/24 14:02 14:48 23:01 WBC RBC Hgb Hct MCV MCH MCHC RDW Std Deviation Plt Count Neut % (Auto) Lymph % (Auto) Piatt % (Auto) Eos % (Auto) Baso % (Auto) Neut # (Auto) Lymph # (Auto) Piatt # (Auto) Eos # (Auto) Baso # (Auto) Immature Gran # (Auto) Absolute Nucleated RBC Immature Gran % Nucleated RBC % Smear Path Review APTT Sodium Potassium 5.3 H Chloride Carbon Dioxide Anion Gap BUN Creatinine Estim Creat Clear Calc eGFR BUN/Creatinine Ratio Glucose Calculated Osmolality Lactic Acid Calcium Corrected Calcium Phosphorus Magnesium 1.9 Total Bilirubin AST ALT Alkaline Phosphatase Troponin I 0.070 H* 0.130 H* B-Natriuretic Peptide Total Protein Albumin Globulin Albumin/Globulin Ratio Ur Collection Type Urine Color Urine Clarity Urine pH Ur Specific Orchard Urine Protein Urine Glucose (UA) Urine Ketones Urine Blood Urine Nitrite Urine Bilirubin Urine Urobilinogen (Auto) Ur Leukocyte Esterase Urine RBC Urine WBC Ur Squamous Epith Cells Urine Bacteria Urine Opiates Screen Urine Fentanyl Screen Ur Barbiturates Screen U Amphetamin/Meth Scrn U Benzodiazepines Scrn U Cocaine Metab Screen U Marijuana (THC) Screen Urine Alcohol RSV Rapid 03/01/24 03/01/24 03/01/24 00:45 03:07 09:40 WBC 14.9 H D RBC 4.29 L Hgb 12.3 L Hct 37.7 L MCV 88 MCH 28.7 MCHC 32.6 RDW Std Deviation 48.1 H Plt Count 204 Neut % (Auto) 77 Lymph % (Auto) 8 L Piatt % (Auto) 15 H Eos % (Auto) 0 Baso % (Auto) 0 Neut # (Auto) 11.5 H Lymph # (Auto) 1.1 Piatt # (Auto) 2.2 H Eos # (Auto) 0.0 Baso # (Auto) 0.0 Immature Gran # (Auto) 0.07 H Absolute Nucleated RBC 0.00 Immature Gran % 1 H Nucleated RBC % 0 Smear Path Review Sent to Pathologist APTT 43.6 H D Sodium 132 L Potassium 5.6 H Chloride 100 Carbon Dioxide 17.3 L Anion Gap 15 BUN 58 H Creatinine 3.4 H D Estim Creat Clear Calc 16.7 L eGFR 17 L BUN/Creatinine Ratio 17 Glucose 157 H Calculated Osmolality 283 Lactic Acid 3.3 H Calcium 9.6 Corrected Calcium 9.6 Phosphorus 6.4 H Magnesium 2.3 Total Bilirubin 1.5 H AST 1818 H* ALT 1998 H* Alkaline Phosphatase 118 H Troponin I 0.170 H* B-Natriuretic Peptide Total Protein 7.0 Albumin 4.2 Globulin 2.8 Albumin/Globulin Ratio 1.5 Ur Collection Type Urine Color Urine Clarity Urine pH Ur Specific Orchard Urine Protein Urine Glucose (UA) Urine Ketones Urine Blood Urine Nitrite Urine Bilirubin Urine Urobilinogen (Auto) Ur Leukocyte Esterase Urine RBC Urine WBC Ur Squamous Epith Cells Urine Bacteria Urine Opiates Screen Negative Urine Fentanyl Screen Negative Ur Barbiturates Screen Negative U Amphetamin/Meth Scrn Negative U Benzodiazepines Scrn Negative U Cocaine Metab Screen Negative U Marijuana (THC) Screen Negative Urine Alcohol Negative RSV Rapid Quality Measures Quality Measures none Advance care planning discussed with:: patient and child Assessment & Plan Assessment Current Active Medications: Generic Name Dose Route Start Last Admin Trade Name Freq PRN Reason Stop Dose Admin Acetaminophen 650 mg 03/01/24 10:01 Acetaminophen 325 Mg Tablet PO 03/30/24 13:39 Q6H PRN Fever >100.3 or pain 1-3 Albuterol/Ipratropium 3 ml 02/29/24 14:10 03/01/24 01:57 Albuterol/Ipratropium (Duoneb) Rt Gretchen 3 Ml Nebu INH 03/30/24 18:59 3 ml Q6HRRT PRN Administration COUGH Aspirin 81 mg 03/01/24 09:00 03/01/24 09:09 Aspirin Ec 81 Mg Tabec PO 03/31/24 08:59 81 mg QDAY LUCERO Administration Bumetanide 1 mg 02/29/24 18:00 03/01/24 05:35 Bumetanide Inj 0.25 Mg/Ml Vial 4 Ml IVP 03/30/24 17:59 1 mg BIDD LUCERO Administration Piperacillin/Tazobactam/Dextrose 50 mls @ 100 mls/hr 02/29/24 16:00 03/01/24 05:35 Zosyn IV 03/07/24 15:59 100 mls/hr Q6HR LUCERO Administration Heparin Sodium/Dextrose 25,000 unit in 250 mls @ 9.09 mls/hr 02/29/24 19:15 03/01/24 04:42 Heparin In D5w Ivpb IV 03/14/24 19:14 14 units/kg/hr .Q24H LUCERO 10.605 mls/hr Titration Protocol 12 UNITS/KG/HR Sodium Chloride 1,000 mls @ 80 mls/hr 03/01/24 09:13 03/01/24 09:35 Ns IV 03/02/24 09:12 80 mls/hr .[id number] LUCERO Administration Metoprolol Tartrate 12.5 mg 03/01/24 09:00 03/01/24 09:09 Metoprolol Tartrate 25 Mg Tablet PO 03/31/24 08:59 12.5 mg BID LUCERO Administration Ondansetron HCl 4 mg 02/29/24 13:40 02/29/24 18:02 Ondansetron Inj 2 Mg/Ml Inj 2 Ml IV 03/30/24 13:39 4 mg Q6H PRN Administration NAUSEA OR VOMITING Protocol Pantoprazole Sodium 20 mg 03/01/24 09:00 03/01/24 09:09 Pantoprazole 20 Mg Tablet PO 03/31/24 08:59 20 mg QDAY LUCERO Administration Patiromer 8.4 gm 03/01/24 09:00 03/01/24 09:34 Patiromer Calcium 8.4 Gm Packet (Non-Form) PO 03/06/24 08:59 8.4 gm QDAY LUCERO Administration Tramadol HCl 50 mg 03/01/24 10:00 03/01/24 10:15 Tramadol Hcl 50 Mg Tablet PO 03/06/24 09:57 50 mg Q8HR PRN Administration PAIN SCALE 4-10(Mod-Sev Plan Jorje Roblero is 84 yr male with PMH of HTN, COPD on 3L home oxygen, left inguinal hernia repair who presents to ED today because he has been feeling week since past few days. Patient stated that for the past few days he has not been able to eat much endorsing decreased appetite and nausea with dry heaving. He has been having difficulty getting out of bed, which is not normal for patient. Also endorses having shortness of breath, fatigue, cough. Patient admitted for management of CHF exacerbation and hospital-acquired pneumonia. #Acute on chronic CHF exacerbation, EF <20% #Pulmonary arterial HTN May be likely due to underlying CAD vs history of tobacco abuse vs history of etoh abuse Endorses having shortness of breath, fatigue, cough. Has been using oxygen at home for past 4 to 5 years. Has difficulty at baseline. CT A/P mild CHF with bilateral pulmonary edema and prominent vascular congestion. In ED, patient was given furosemide 40 mg x 2, 1 L bolus of normal saline, started on IV Zosyn. Does not appear to be on goal-directed medical therapy ECHO from 02/29/24: Dilated cardiomyopathy, severely dilated LA, severe global hypokinesis, EF less than 20%, moderate to severe PAH. NYHA class III -Dr. Hartman has been consulted -echo resulted -continue IV Bumex 1 mg BID -hold Entresto and metoprolol succinate as BP has remained on lower side -daily weights -strict INOs -low sodium diet -restrict fluid to 1500mL -keep potassium >4, mag >2 -daily CBC, CMP #LBBB #NSVT #Atrial fibrillation?paroxysmal Patient denies any symptoms of palpitations, SOB or dizziness EKG on admission showed sinus tachycardia, rate 106 with LBBB. Patient appears to also have LBBB on his previous EKGs from chart review. On telemetry review in the ED patient had several rounds of NSVT <30 seconds also alternated in and out of A-fib. Patient not known to have atrial fibrillation from before and not on any rate or rhythm control medication at home. [id number]: 5 points; 7.2% stroke risk per year HAS-BLED : 5 points; high risk of bleeding ? stop amiodarone infusion due to worsening LFTs ? continue heparin drip for NSTEMI type II ? To start patient on Eliquis after 48 hours of heparin infusion ? Patient will need to be started on rate control with metoprolol XL once blood pressure allows. #B/L HAP? #Left pleural effusion Hospitalized 1-2 weeks ago at [facility] underwent LHC. Complaints of cough, shortness of breath. No chest pain, fever. Lactic acid was elevated 2.4, WBC normal 9.9. CT A/P significant for pneumonia bilateral lung bases, left pleural effusion Questionable underlying HAP as he has no leukocytosis and elevated LA most likely in setting of fluid overloaded state. -stop IV Zosyn due to hepatotoxicity and pts worsening LFTs -Preliminary blood cultures negative -Continue oxygen as needed #Elevated lactic acid Uptrending since admission. Most likely due to severe HF. No signs of sepsis. Prelimiary blood cultures negative. -continue diuresis IV Bumex 1 mg BID -monitor #GHISLAINE #Hyperkalemia #Hyperphosphatemia Most likely due to cardiorenal syndrome in setting of acute CHF exacerbation vs poor oral intake which seems to be less likely as BUN/creatinine ratio is less than 20. -nephrology Dr. Loo was consulted. ?Start IV 1 mg Bumex twice daily ? Daily CMP ? Avoid other nephrotoxic agents ? Avoiding maintenance fluids at this time #Transaminitis Less likely alcohol induced, ALT is greater than AST. vs drug-induced Patient denies any abdominal pain. Right upper quadrant ultrasound negative for any findings. AST 444, ALT 600, alk phos 129 -AST 1818/ALT 1997 today -stopped amiodarone drip. -continue to monitor -daily CMP #Troponinemia NSTEMI type II demand ischemia Patient has history of CAD with a recent hospitalization to [facility] after presenting with typical chest pain. Patient underwent left heart catheter. Family refused to have patient undergo CABG. EKG in ED showed no acute ischemic changes Troponin trends have been uptrending. 0.06--0.07--0.17 -start heparin drip -aspirin 81 mg daily #History hypertension Home medication includes furosemide 40 mg daily, spironolactone 25 mg daily, nitroglycerin 0.4 mg as needed -Hold all antihypertensives at this time due to soft blood pressure #History of GERD Start home medication omeprazole 20 mg p.o. daily #History CAD -Does not appear to be on any statins -no statins indicated at this time due to worsening LFTs -Aspirin 81 mg p.o. daily -In need of CABG but patient's family has refused Health maintenance: Dispo: CHF DVT prophylaxis: Subcu heparin CODE STATUS: DNR/DNI-okay for BiPAP Diet: regular Contact daughter Irma for questions--[phone]. Family is considering home hospice at this time. The patient's management plan was discussed with my attending physician Dr. Weinstein and senior Dr. Prescott. Angelina Armando, PGY-1 Attending Provider Attestation/Addendum I have discussed and was present for the essential components of the history, physical examination, diagnosis, and treatment plan with the resident. I agree with the patient's care as documented by the resident and amended herein by me. Navi Weinstein, DO. Patient seen and evaluated this AM. Due to the patient's declining condition, the patient's family are interested in home with hospice care. Patient given information, will follow-up tomorrow. Patient's multiorgan failure seems to be worsening however the family does not wish any more invasive workup or treatment strategies to be implemented. Will continue to monitor closely and follow the patient and his family's wishes closely. Although this document has been carefully reviewed, there may still be some phonetic and other typographical errors. These errors are purely grammatical due to imperfections in the software program and should not be construed in any way to compromise the substance of the patient's medical care during this visit.
[2024-03-01 11:58] LABS: Partial Thromboplastin Time 67.9 Seconds (22.0-36.0)
[2024-03-01 12:55] LABS: Reflex Lactate? Y
[2024-03-01 14:13] LABS: Lactic Acid, 3 HR 3.3 mMol/L (0.4-2.0)
[2024-03-01 14:58] LABS: Alanine Aminotransferase 2077 U/L (10-49); Albumin, Serum 3.9 gm/dL (3.4-4.8); Albumin/Globulin Ratio 1.6 (1.2-2.2); Alkaline Phosphatase 111 U/L (46-116); Anion Gap 14 (7-16); Aspartate Amino Transferase 1639 U/L (0-34); BUN/Creatinine Ratio 17 Ratio (12-20); Bilirubin,Total 1.3 mg/dL (0.3-1.2); Blood Urea Nitrogen 65 mg/dL (9-23); Calcium 9.2 mg/dL (8.3-10.6); Calcium (Corrected) 9.3 mg/dL (8.5-10.1); Carbon Dioxide 16.6 mMol/L (20.0-31.0); Chloride 99 mMol/L (98-107); Creatinine (Component) 3.8 mg/dL (0.6-1.3); Estimated Creatinine Clearance 15.3 mL/min (>60); Globulin 2.5 gm/dL (2.3-3.5); Glucose 135 mg/dL (74-106); Magnesium 2.1 mg/dL (1.6-2.6); Osmolality,Calculated 281 (275-295); Potassium 5.3 mMol/L (3.4-5.1); Sodium 130 mMol/L (136-145); Total Protein 6.4 gm/dL (5.7-8.2); eGFR 15 See Note
[2024-03-01 19:58] LABS: Partial Thromboplastin Time 61.5 Seconds (22.0-36.0)
[2024-03-01] MEDS: Heparin/D5w 25K 250 ML Ivpb 25,000 UNIT/250 ML BAG 10.605 UNIT IV (20:15)
[2024-03-02] VITALS (10 sets, daily range): BP systolic 102–119; BP diastolic 63–81; PULSE 67–80; RESP 16–27; TEMP 36.2–36.8; O2SAT 76–100; BMI 21.4
--- NOTE | 2024-03-02 04:06 | PD.RESEVENT ---
Documentation for date of: 03/02/24 Event Note Event Note: Rapid responce was called due to hypoxia. Upon arrival, the patient was found to be saturating in the low 80s on 15 L of nasal cannula. The patient's mentation was at baseline, alert and oriented to person, place, and time, and responding appropriately to questions. Other vital signs were within normal limits. The patient was placed on a high-flow nasal cannula. A VBG will be obtained and followed up once results are available. By the end of the rapid response, the patient was on 35% FiO2 and saturating at 94%. Patient care was discussed with attending physician Dr. Faviola Mejía MD PGY-2 I have carefully reviewed this document. Due to imperfections in the voice software, there could be grammatical errors including phonetic/typographic errors. This in no way compromises the medical care the patient is receiving
--- NOTE | 2024-03-02 04:09 | PC.NURSE ---
FLIGHT PHYSICIAN called @04:04 for low oxygen saturation. Pt has been on 3L/NC and tolerating. @04:00, patient oxygenation dropped to 77%. Pt was then placed on Oxymask @15L. Per MD KHAN, pt then placed on High Flow Nasal Cannula @14L/35% with a goal of oxygen saturation >88% per MD. Rapid Response ended @04:09, with new intervention in place. Plan of care on-going.
[2024-03-02 05:46] LABS: Base Excess, Venous -8 (-3-3); O2 Saturation, Venous 42 % (96-97); PCO2, Venous 39 mmHg (36-56); PO2, Venous 34 mmHg (15-58); pH, Venous 7.28 (7.33-7.66)
[2024-03-02 05:53] LABS: Basophils % (Auto) 0 % (0-2.5); Eosinophils # (Auto) 0.1 Thou/mm3 (0.0-0.5); Eosinophils % (Auto) 1 % (0-10); Hematocrit 37.1 % (41.0-53.0); Hemoglobin 11.9 g/dL (13.5-16.0); Immature Granulocytes % (Auto) 1 % (0-0); Immature Granulocytes Auto 0.08 Thou/mm3 (0.00-0.00); Lymphocytes % (Auto) 7 % (10-50); Mean Corpuscular HGB Conc 32.1 g/dl (31.0-37.0); Mean Corpuscular Hemoglobin 28.4 pg (25.0-35.0); Mean Corpuscular Volume 89 fL (80-100); Monocytes # (Auto) 2.3 Thou/mm3 (0.0-0.8); Monocytes % (Auto) 16 % (0-12); Neutrophils # (Auto) 10.6 Thou/mm3 (1.8-7.7); Neutrophils % (Auto) 75 % (37-80); Nucleated Red Blood Cell % 0 /100 WBC (0); Platelet Count 183 Thou/mm3 (140-440); RDW Standard Deviation 48.1 fL (35.1-43.9); Red Blood Count 4.19 Miln/mm3 (4.50-5.90); White Blood Count 14.3 Thou/mm3 (3.8-10.6)
--- NOTE | 2024-03-02 06:44 | XR_ITS ---
Examination: AP chest single view Technique one AP portable semiupright chest single view Exam date and time: March 02, 2024 0658 hours Comparison February 29, 2024 INDICATIONS: Worsening shortness of breath and hypoxia today. FINDINGS: Prominent left base pneumonia Mild heart failure with enlarged cardiac contour and prominent vascular congestion suspicious for early septal edema Prominent osteopenia IMPRESSION: Prominent pneumonia left base Mild heart failure
[2024-03-02 06:54] LABS: Alanine Aminotransferase 2171 U/L (10-49); Albumin, Serum 3.9 gm/dL (3.4-4.8); Albumin/Globulin Ratio 1.5 (1.2-2.2); Alkaline Phosphatase 130 U/L (46-116); Anion Gap 18 (7-16); Aspartate Amino Transferase 1307 U/L (0-34); BUN/Creatinine Ratio 18 Ratio (12-20); Bilirubin,Total 1.2 mg/dL (0.3-1.2); Blood Urea Nitrogen 74 mg/dL (9-23); Calcium 9.1 mg/dL (8.3-10.6); Calcium (Corrected) 9.2 mg/dL (8.5-10.1); Carbon Dioxide 15.6 mMol/L (20.0-31.0); Chloride 98 mMol/L (98-107); Creatinine (Component) 4.2 mg/dL (0.6-1.3); Estimated Creatinine Clearance 13.9 mL/min (>60); Globulin 2.6 gm/dL (2.3-3.5); Glucose 93 mg/dL (74-106); Osmolality,Calculated 286 (275-295); Potassium 5.4 mMol/L (3.4-5.1); Sodium 132 mMol/L (136-145); Total Protein 6.5 gm/dL (5.7-8.2); eGFR 13 See Note
[2024-03-02 07:54] LABS: Partial Thromboplastin Time 64.1 Seconds (22.0-36.0)
[2024-03-02] MEDS: PATIROMER CALCIUM 8.4 GM PACKET (NON-FORM) PO (08:23)
[2024-03-02] MEDS: PANTOPRAZOLE 20 MG TABLET PO (08:23)
[2024-03-02] MEDS: METOPROLOL TARTRATE 25 MG TABLET 12.5 MG PO (08:23)
[2024-03-02] MEDS: ASPIRIN EC 81 MG TABEC PO (08:23)
--- NOTE | 2024-03-02 10:35 | ESPR_ITS ---
Documentation for date of: 03/02/24 Subjective Subjective Interval history: Patient was seen and examined at bedside this AM. Overnight Patient had episode of confusion and was pulling at his lines and was placed on light restraints. Patient currently back to baseline and alert and oriented x 3 Patient tolerating diet, adequate urine output and mentation is at baseline but waxes and wanes in and out of cunfusion Patient endorses worsening of SOB Currently patient on HFNC at 14L/min and 40% FiO2 Patient had a fluid balance of +999 cc in the past 24 hours. Potassium decreased to 5.4 from 5.6, magnesium 2.1. Bicarb decreased to 15.6 from 17.3 indicating metabolic acidosis, BUN increased to 74 from 58 and CR increased to 4.2 from 3.4 Confusion likely secondary to uremia. Recommend Stat Nephrology consult Recommend to continue to hold diuresis at this point and give gentle IV fluids for GHISLAINE and hydration AST decreased to 1307 from 1800s and ALT increased to 2171 from 1900s possibly secondary to ischemic hepatis vs Sepsis, recommend stat GI consult for further evaluation Patient condition critical and overall prognosis poor. Primary team planning to talk to family regarding goals of care. Exam Vital Signs Temp Pulse Resp BP Pulse Ox O2 Del Method O2 Flow Rate 97.7 F 78 16 111/75 92 L High Flow Nasal Cannula 14 03/02/24 08:00 03/02/24 08:23 03/02/24 08:00 03/02/24 08:23 03/02/24 08:00 03/02/24 08:00 03/02/24 08:00 FiO2 40 03/02/24 08:00 Narrative Exam Constitutional Alert, oriented x 3 and comfortable. Elderly male, cachectic, on O2 via HFNC HEENT Vision grossly intact. Patent nares. Trachea midline Respiratory Chest normal on inspection and decreased breath sounds throughout lung fritz b/l scattered wheeze heard throughout lung fritz Cardiovascular S1 and S2 audible, RRR. No murmurs carotid bruit. JVD unable to assess Abdominal Soft and non tender to palpation in all quadrants. BS + Genitourinary No bladder tenderness, no flank pain. Normal to palpation Musculoskeletal Extremities tone within normal limits. Trace LE edema. Neurological CN II - XII grossly intact. Extremity motor and sensation grossly intact. Skin Centrally warm, extremities cold to touch. No apparent lesions. Psychiatric Patient has good affect, is cooperative Objective Labs 03/02/24 04:50 03/02/24 04:50 Labs: Laboratory Results - last 24 hr 03/01/24 03/01/24 03/01/24 11:15 13:56 19:12 WBC RBC Hgb Hct MCV MCH MCHC RDW Std Deviation Plt Count Neut % (Auto) Lymph % (Auto) [place] % (Auto) Eos % (Auto) Baso % (Auto) Neut # (Auto) Lymph # (Auto) [place] # (Auto) Eos # (Auto) Baso # (Auto) Immature Gran # (Auto) Absolute Nucleated RBC Immature Gran % Nucleated RBC % APTT 67.9 H D 61.5 H VBG pH VBG pCO2 VBG pO2 VBG O2 Sat (Ynes) VBG Base Excess Sodium 130 L Potassium 5.3 H Chloride 99 Carbon Dioxide 16.6 L Anion Gap 14 BUN 65 H Creatinine 3.8 H Estim Creat Clear Calc 15.3 L eGFR 15 L BUN/Creatinine Ratio 17 Glucose 135 H Calculated Osmolality 281 Lactic Acid 3.3 H Calcium 9.2 Corrected Calcium 9.3 Magnesium 2.1 Total Bilirubin 1.3 H AST 1639 H* ALT 2077 H* Alkaline Phosphatase 111 Total Protein 6.4 Albumin 3.9 Globulin 2.5 Albumin/Globulin Ratio 1.6 03/02/24 03/02/24 04:50 07:00 WBC 14.3 H RBC 4.19 L Hgb 11.9 L Hct 37.1 L MCV 89 MCH 28.4 MCHC 32.1 RDW Std Deviation 48.1 H Plt Count 183 Neut % (Auto) 75 Lymph % (Auto) 7 L [place] % (Auto) 16 H Eos % (Auto) 1 Baso % (Auto) 0 Neut # (Auto) 10.6 H Lymph # (Auto) 1.0 [place] # (Auto) 2.3 H Eos # (Auto) 0.1 Baso # (Auto) 0.0 Immature Gran # (Auto) 0.08 H Absolute Nucleated RBC 0.00 Immature Gran % 1 H Nucleated RBC % 0 APTT 64.1 H VBG pH 7.28 L VBG pCO2 39 VBG pO2 34 VBG O2 Sat (Ynes) 42 L VBG Base Excess -8 L Sodium 132 L Potassium 5.4 H Chloride 98 Carbon Dioxide 15.6 L Anion Gap 18 H BUN 74 H Creatinine 4.2 H* Estim Creat Clear Calc 13.9 L eGFR 13 L* BUN/Creatinine Ratio 18 Glucose 93 Calculated Osmolality 286 Lactic Acid Calcium 9.1 Corrected Calcium 9.2 Magnesium Total Bilirubin 1.2 AST 1307 H* ALT 2171 H* Alkaline Phosphatase 130 H Total Protein 6.5 Albumin 3.9 Globulin 2.6 Albumin/Globulin Ratio 1.5 ABG Interpretation ABG results: 03/02/24 04:50 VBG pH 7.28 L VBG pCO2 39 VBG pO2 34 VBG Base Excess -8 L Quality Measures Quality Measures none Advance care planning discussed with:: patient, spouse and child Assessment & Plan Assessment Current Active Medications: Generic Name Dose Route Start Last Admin Trade Name Freq PRN Reason Stop Dose Admin Acetaminophen 650 mg 03/01/24 10:01 Acetaminophen 325 Mg Tablet PO 03/30/24 13:39 Q6H PRN Fever >100.3 or pain 1-3 Albuterol/Ipratropium 3 ml 02/29/24 14:10 03/01/24 01:57 Albuterol/Ipratropium (Duoneb) Rt Gretchen 3 Ml Nebu INH 03/30/24 18:59 3 ml Q6HRRT PRN Administration COUGH Aspirin 81 mg 03/01/24 09:00 03/02/24 08:23 Aspirin Ec 81 Mg Tabec PO 03/31/24 08:59 81 mg QDAY LUCERO Administration Bumetanide 1 mg 02/29/24 18:00 03/01/24 05:35 Bumetanide Inj 0.25 Mg/Ml Vial 4 Ml IVP 03/30/24 17:59 1 mg BIDD LUCERO Administration Heparin Sodium/Dextrose 25,000 unit in 250 mls @ 9.09 mls/hr 02/29/24 19:15 03/01/24 20:15 Heparin In D5w Ivpb IV 03/14/24 19:14 14 units/kg/hr .Q24H LUCERO 10.605 mls/hr Administration Protocol 12 UNITS/KG/HR Metoprolol Tartrate 12.5 mg 03/01/24 09:00 03/02/24 08:23 Metoprolol Tartrate 25 Mg Tablet PO 03/31/24 08:59 12.5 mg BID LUCERO Administration Ondansetron HCl 4 mg 02/29/24 13:40 02/29/24 18:02 Ondansetron Inj 2 Mg/Ml Inj 2 Ml IV 03/30/24 13:39 4 mg Q6H PRN Administration NAUSEA OR VOMITING Protocol Pantoprazole Sodium 20 mg 03/01/24 09:00 03/02/24 08:23 Pantoprazole 20 Mg Tablet PO 03/31/24 08:59 20 mg QDAY LUCERO Administration Patiromer 8.4 gm 03/01/24 09:00 03/02/24 08:23 Patiromer Calcium 8.4 Gm Packet (Non-Form) PO 03/06/24 08:59 8.4 gm QDAY LUCERO Administration Tramadol HCl 50 mg 03/01/24 11:44 Tramadol Hcl 50 Mg Tablet PO 03/06/24 11:43 Q12H PRN PAIN SCALE 4-10(Mod-Sev Protocol Plan Patient is an 84-year-old male with a past medical history significant for essential hypertension, chronic systolic heart failure with reduced ejection fraction [40-45% from 2020], CAD, hyperlipidemia, COPD on 3L home oxygen. Patient previously followed up with machine lay out worker Dr. Pedroza now follows up with Dr. Hartman. Patient presented to the ED last night with a chief complaint of decreased appetite for 1 week. Patient was admitted for acute respiratory failure with hypoxia secondary to CHF exacerbation and bilateral pneumonia. Cardiology was consulted. 1. Acute on chronic respiratory failure with hypoxia - worsening Secondary to 2. Acute decompensated chronic systolic heart failure with reduced ejection fraction [<20%] 3. Cardiorenal syndrome vs Hepatorenal syndrome 4. Uremic Encephalopathy Patient is on 3L oxygen at home. On this admission patient presented with decreased appetite as well as a productive cough for approximately 2 weeks. Patient had a recent hospitalization at [facility] last month with a complaint of shortness of breath and chest pain and was treated for pneumonia and NSTEMI type II. Patient's home diuretic Lasix 40 Mg p.o. daily and spironolactone 25 Mg p.o. daily Patient previous echo from last month and left heart cath estimated EF around 25% DDx : Ischemic hepatitis, sepsis, hepatorenal syndrome, multi organ failure, acute renal failure Transthoracic echocardiogram completed on 02/29/2024 findings include: Dilated cardiomyopathy. Moderatelly dialted LV, RV and RA. Severely dilated LA Severe LV systolic dysfunction with Severe global hypokinesis.Estimated EF < 20%. Septal and lateral wall dysnchrony due to LBBB. Diastolic dysfunction present bbut cannot grade due to severe MAC Mild RV systolic dysfunction. Estimated RVSP 68mmHg. Moderate to severe PAH Severe MAC. Moderate MR and TR. Trace AI. Mild AV sclerosis without stneosis. IVC dilated. NYHA stage C class III BNP >3280 on admission On admission AST 444, ALT 600, ALP 129 indicating hepatic congestion and possible cardiorenal syndrome. AST decreased to 1307 from 1800s and ALT increased to 2171 from 1900s possibly secondary to ischemic hepatis vs Sepsis vs hepatorenal syndrome, recommend stat GI consult for further evaluation Patient tolerating diet, adequate urine output and mentation is at baseline but waxes and wanes in and out of confusion Patient endorses worsening of SOB Currently patient on HFNC at 14L/min and 40% FiO2 Patient had a fluid balance of +999 cc in the past 24 hours. Potassium decreased to 5.4 from 5.6, magnesium 2.1. Bicarb decreased to 15.6 from 17.3 indicating metabolic acidosis, BUN increased to 74 from 58 and CR increased to 4.2 from 3.4 Confusion likely secondary to uremia. Recommend Stat Nephrology consult Plan: ? Strict input output charting ? Daily weight ? 1500cc fluid restriction ? 2 g sodium restricted diet ? Continue to hold Bumex in light of GHISLAINE and uremia - Recommend gentle IV fluids to avoid further exacaerbation of CHF - Recommend stat Nephrology consult for acute Renal failure 4. Coronary artery disease Left heart cardiac catheterization completed on 01/22/2024 showed moderate to severe stenosis of the ostial LAD 70% as well as moderate stenosis of the ostial ramus 50% but rest of the arteries only showed mild disease. Also appears to be significant Ashley nodular calcium at the distal left main at the bifurcation of the LAD causing the stenosis. Severely low EF approximately 25%. Patient will need rotablation with Impella support to perform percutaneous intervention which was explained in detail to the patient as well as the daughter. Also explained the possibility of CKD stage IV worsening and need for possible dialysis. The family did not want any complex procedures as the patient is doing well and wished for medical treatment. CT surgery was also consulted for possible CABG given the medium to large LAD as well as the diagonal and if a mid Option could be offered for the patient. Patient was deemed to be a high surgical risk given his severely low EF, highly calcified porcelain aorta this is easily visualized on the cath itself along with his age and multiple other comorbidities. CT surgery recommended to continue with aggressive medical management for now. Plan: ? Continue ASA 81 Mg p.o. daily 5. LBBB 6. NSVT 7. Atrial fibrillation?paroxysmal Patient denies any symptoms of palpitations, SOB or dizziness EKG on admission showed sinus tachycardia, rate 106 with LBBB. Patient appears to also have LBBB on his previous EKGs from chart review. On telemetry review in the ED patient had several rounds of NSVT <30 seconds also alternated in and out of A-fib. Patient not known to have atrial fibrillation from before and not on any rate or rhythm control medication at home. [id number]: 5 points; 7.2% stroke risk per year [age, sex, CHF, HTN, CAD] HAS-BLED : 5 points; high risk of bleeding NSVT and question of atrial fibrillation-reviewed the EKG patient does have baseline left bundle branch block known for many years and that he appears to be in sinus tachycardia and at times junctional tachycardia and frequent PACs or PVCs. Also had a few runs of NSVT but not lasting more than 30 seconds. Patient does have a history of dilated cardiomyopathy with an ejection fraction less than 20% during today's echo. Patient is at risk for ventricular tachycardia and given his severely low EF. Telemetry a appeared to show patient is in atrial fibrillation with repeat EKG showed only junctional tachycardia. Plan: ? Continue amiodarone infusion for rhythm control to prevent atrial fibrillation ? Patient currently on heparin drip for NSTEMI type II ? To start patient on Eliquis after 48 hours of heparin infusion ? If blood pressure tolerable then patient should be started on low-dose metoprolol tartrate 12.5 mg twice daily which can be later on transition to metoprolol XL 25 mg once daily once patient blood pressure is more stable. ? Please maintain potassium greater than 3.5 as patient is CKD and magnesium greater than 2 at all times to prevent any further arrhythmias 8. NSTEMI type I versus type II Patient denies any symptoms of chest pain/pressure or palpitations. On admission troponin 0.06 and up trended to 0.07 possibly in the setting of aspiration pneumonia. Likely supply/demand mismatch. EKG showed sinus tachycardia, rate 106 [address]. No acute ST changes Regarding the elevated troponins patient does have a history of severe calcified CAD involving the ostial LAD, distal left main as well as the high diagonal 1 or ramus as noted above by cardiac catheterization in January 2024. Patient is high risk candidate for CABG or even a MIDCAB operation as per the surgeons seen at [facility] given patient's age and multiple comorbidities and also the porcelain aorta noted during the catheter performed. Will patient was also recommended complex PCI with possible Impella support and the risk of acute on chronic kidney injury and dialysis. Patient did offer only medical treatment after discussion with the daughter. Recommended heparin drip for now of for at least 48 hours if the troponins continue to be elevated. Aspirin statin and beta-zev if blood pressure is permissible. Plan: ? Recommend heparin infusion for 48 hours ? Recommend to continue ASA 81 Mg p.o. daily , statin and beta zev once blood pressure is permissable 9. Essential hypertension On admission patient's BP 119/85 currently BP 102/63 Home medication furosemide 40 Mg p.o. daily and spironolactone 25 Mg p.o. daily Plan: ? If blood pressure tolerable then patient should be started on low-dose metoprolol tartrate 12.5 mg twice daily which can be later on transition to metoprolol XL 25 mg once daily once patient blood pressure is more stable. ? Can restart spironolactone later on as part of GDMT once BP allows 10. GHISLAINE on CKD stage IV Patient's baseline CR 2.2?2.4. On admission CR 2.6 Currently Cr 4.2 Recommend stat Nephrology consult for Acute Renal Failure Continue management as per primary team and Nephrology 11. Ascending thoracic aorta aneurysm Currently patient denies any chest pain/pressure or palpitations and blood pressure is currently 104/76 CT C/A/P on admission showed a 4.3 cm ascending thoracic aorta aneurysm Plan: ? Recommend interval CT scan at 6 months to reassess 12. Hyperlipidemia Patient's last lipid profile from May 2023 showed triglycerides 69, cholesterol 143 and LDL 92. Currently patient has severe transaminitis. It is okay to hold statin for now 13. Aspiration pneumonia Patient is currently confused and alternates between lucid intervals. Patient endorses a productive cough for the past 2 weeks and is at high risk for aspiration. Chest x-ray on admission was significant for increased vascular markings, pulmonary edema and bibasilar consolidation. Patient was started on Zosyn renal dose and sputum culture were ordered. Continue management as per primary team 14. Transaminitis - worsening On admission AST 444, ALT 600, ALP 129 indicating hepatic congestion and possible cardiorenal syndrome. AST decreased to 1307 from 1800s and ALT increased to 2171 from 1900s possibly secondary to ischemic hepatis vs Sepsis vs hepatorenal syndrome, recommend stat GI consult for further evaluation All of the above was discussed with patient's son and daughter who is retired dependency program director at [employer] [facility] [facility] [employer], at bedside. Family agree with current management and wish to continue with DNR/DNI status. Family also declined any electrical cardioversion or defibrillation if patient goes into cardiac arrest. Patient condition critical and overall prognosis poor. Primary team planning to talk to family regarding goals of care. Continue rest of management as per primary team. We are grateful to be able to participate in Mr. Flower's care. Thank you for the consult Plan of care discussed with attending Assistant Community Manager, Dr Minnie Issa MD PGY 1 Attending Provider Attestation/Addendum I have personally seen and examined the patient separately on the above date of service and discussed the plan of care with the resident. I reviewed the resident Dr. Issa consultation progress note and agree with the resident findings and plan in the note above and have also edited the documentation to reflect my findings and plan. Damian Hartman M.D. Interventional Cardiology
[2024-03-02 10:42] LABS: Magnesium 2.1 mg/dL (1.6-2.6)
--- NOTE | 2024-03-02 10:45 | PC.SS ---
TANK HOUSE OPERATOR present with attending as patient's spouse confirmed plan to transition the patient home with hospice services. surgical services asst to submit referral on behalf of the patient. Patient currently on 14L oxygen.
--- NOTE | 2024-03-02 11:01 | PC.SS ---
Addendum entered by Megha Farmer 03/02/24 13:50: SS met with daughter at bedside to discuss d/c plans. Daughter prefers DME to be delivered today and they will be ready for patient by tomorrow. Family will rotate care. SS updated [facility] and they will contact to schedule arrangements. SS provided emotional support for daughter. D/c tentatively for tomorrow. Original Note: Follow up note: Patient is now on high flow 02. Physician spoke to family re: hospice services. is primary contact and decision maker. Daughter, Irma, @ [phone] is secondary contact and a retired nurse from our hospital. Family is agreeable to hospice services. SS spoke to daughter and she confirmed she prefers [facility]. They want hospice at home. Patient is already a DNR. SS sent off referral on [facility] to [facility].
--- NOTE | 2024-03-02 14:59 | PD.RESEVENT ---
Documentation for date of: 03/02/24 Event Note Event Note: Spoke with patient's daughter, Irma, over the phone at around 2:50pm on 03/02/2024 regarding the patient's oxygenation status. Patient is currently desatting at around 77 on 15L NC; daughter is aware and states she spoke with the rest of the family, including the decision maker (Pat - patient's spouse) and would like to proceed with comfort measures. I handed the phone to my senior resident, Dr. Florian, who also spoke to the daugther and confirmed her wishes to proceed with comfort measures. Sebastián Lopez, PGY-1
--- NOTE | 2024-03-02 16:04 | PD.NEPHPROG ---
Documentation for date of: 03/02/24 Exam Vital Signs Temp Pulse Resp BP Pulse Ox O2 Del Method O2 Flow Rate 98.1 F 67 20 102/63 99 High Flow Nasal Cannula 8 03/02/24 12:00 03/02/24 12:00 03/02/24 12:00 03/02/24 12:00 03/02/24 12:00 03/02/24 12:00 03/02/24 12:00 FiO2 40 03/02/24 12:00 Objective Labs 03/02/24 04:50 03/02/24 04:50 Labs: Laboratory Results - last 24 hr 03/01/24 03/02/24 03/02/24 19:12 04:50 07:00 WBC 14.3 H RBC 4.19 L Hgb 11.9 L Hct 37.1 L MCV 89 MCH 28.4 MCHC 32.1 RDW Std Deviation 48.1 H Plt Count 183 Neut % (Auto) 75 Lymph % (Auto) 7 L [place] % (Auto) 16 H Eos % (Auto) 1 Baso % (Auto) 0 Neut # (Auto) 10.6 H Lymph # (Auto) 1.0 [place] # (Auto) 2.3 H Eos # (Auto) 0.1 Baso # (Auto) 0.0 Immature Gran # (Auto) 0.08 H Absolute Nucleated RBC 0.00 Immature Gran % 1 H Nucleated RBC % 0 APTT 61.5 H 64.1 H VBG pH 7.28 L VBG pCO2 39 VBG pO2 34 VBG O2 Sat (Ynes) 42 L VBG Base Excess -8 L Sodium 132 L Potassium 5.4 H Chloride 98 Carbon Dioxide 15.6 L Anion Gap 18 H BUN 74 H Creatinine 4.2 H* Estim Creat Clear Calc 13.9 L eGFR 13 L* BUN/Creatinine Ratio 18 Glucose 93 Calculated Osmolality 286 Calcium 9.1 Corrected Calcium 9.2 Magnesium 2.1 Total Bilirubin 1.2 AST 1307 H* ALT 2171 H* Alkaline Phosphatase 130 H Total Protein 6.5 Albumin 3.9 Globulin 2.6 Albumin/Globulin Ratio 1.5 ABG Interpretation ABG results: 03/02/24 04:50 VBG pH 7.28 L VBG pCO2 39 VBG pO2 34 VBG Base Excess -8 L
--- NOTE | 2024-03-02 16:15 | ESPR_ITS ---
<Statement entered by Kiera Florian MD - 03/02/24 16:55> I discussed with and supervised the intern product marketing manager physician who took care of this patient. I personally saw and examined the patient and discussed the assessment and plan with the entire medicine team, including my attending Dr. Weinstein, I agree with most of the assessment and plan as documented below Kiera Florian M.D. PGY-2 Documentation for date of: 03/02/24 Subjective Subjective Interval history: 03/02/2024: Overnight rapid response called for patient for desaturation in the 80s on 15 L nasal cannula; night team started the patient on high flow nasal cannula acquired an ABG and a chest x-ray. Patient's prognosis remains poor, patient's family bedside was updated regarding his status. Patient's oxygenation requirements were increasing; moreover, family made aware and decided to transition the patient to comfort measures. There is an event note highlighting the conversation with the patient's family member regarding a decision. Exam Vital Signs Temp Pulse Resp BP Pulse Ox O2 Del Method O2 Flow Rate 98.1 F 67 20 102/63 99 High Flow Nasal Cannula 8 03/02/24 12:00 03/02/24 12:00 03/02/24 12:00 03/02/24 12:00 03/02/24 12:00 03/02/24 12:00 03/02/24 12:00 FiO2 40 03/02/24 12:00 Narrative Exam General: Awake but in/out of sleep, answering questions appropriatel but slowly, appears short of breath HEENT: Atraumatic, normocephalic. No JVD noted. Mucosa moist. Cardiovascular: Normal S1 and S2. Regular rate and rhythm. +1 pitting edema Respiratory: Reduced breath sounds bilaterally Abdomen: Soft, nontender, not distended, normal bowel sounds, conner catheter Skin: Warm to touch, dry, no rashes noted Musculoskeletal: No gross injuries. Able to move all 4 extremities. Neuro: Alert and oriented x3. No focal neuro deficits. Objective Labs 03/02/24 04:50 03/02/24 04:50 Labs: Laboratory Results - last 24 hr 03/01/24 03/02/24 03/02/24 19:12 04:50 07:00 WBC 14.3 H RBC 4.19 L Hgb 11.9 L Hct 37.1 L MCV 89 MCH 28.4 MCHC 32.1 RDW Std Deviation 48.1 H Plt Count 183 Neut % (Auto) 75 Lymph % (Auto) 7 L [place] % (Auto) 16 H Eos % (Auto) 1 Baso % (Auto) 0 Neut # (Auto) 10.6 H Lymph # (Auto) 1.0 [place] # (Auto) 2.3 H Eos # (Auto) 0.1 Baso # (Auto) 0.0 Immature Gran # (Auto) 0.08 H Absolute Nucleated RBC 0.00 Immature Gran % 1 H Nucleated RBC % 0 APTT 61.5 H 64.1 H VBG pH 7.28 L VBG pCO2 39 VBG pO2 34 VBG O2 Sat (Ynes) 42 L VBG Base Excess -8 L Sodium 132 L Potassium 5.4 H Chloride 98 Carbon Dioxide 15.6 L Anion Gap 18 H BUN 74 H Creatinine 4.2 H* Estim Creat Clear Calc 13.9 L eGFR 13 L* BUN/Creatinine Ratio 18 Glucose 93 Calculated Osmolality 286 Calcium 9.1 Corrected Calcium 9.2 Magnesium 2.1 Total Bilirubin 1.2 AST 1307 H* ALT 2171 H* Alkaline Phosphatase 130 H Total Protein 6.5 Albumin 3.9 Globulin 2.6 Albumin/Globulin Ratio 1.5 ABG Interpretation ABG results: 03/02/24 04:50 VBG pH 7.28 L VBG pCO2 39 VBG pO2 34 VBG Base Excess -8 L Quality Measures Quality Measures none Advance care planning discussed with:: spouse and child Assessment & Plan Assessment Current Active Medications: Generic Name Dose Route Start Last Admin Trade Name Freq PRN Reason Stop Dose Admin Acetaminophen 650 mg 03/01/24 10:01 Acetaminophen 325 Mg Tablet PO 03/30/24 13:39 Q6H PRN Fever >100.3 or pain 1-3 Albuterol/Ipratropium 3 ml 02/29/24 14:10 03/01/24 01:57 Albuterol/Ipratropium (Duoneb) Rt Gretchen 3 Ml Nebu INH 03/30/24 18:59 3 ml Q6HRRT PRN Administration COUGH Artificial Tears 1 drop 03/02/24 14:55 Artificial Tears 225 Drop/15 Ml Btl BOTH EYES 04/01/24 14:54 Q4HR PRN Dry eyes Atropine Sulfate 2 drop 03/02/24 14:55 Atropine Sulf Op Gretchen 1% 5 Ml Btl SL 04/01/24 14:54 Q4HR PRN SECRETIONS Morphine Sulfate 100 mls @ 1 mls/hr 03/02/24 14:55 Morphine Sulfate Iv Drip 100mg/100ml IV 03/07/24 14:54 .Q24H PRN PAIN (COMFORT CARE) Protocol 1 MG/HR Ondansetron HCl 4 mg 02/29/24 13:40 02/29/24 18:02 Ondansetron Inj 2 Mg/Ml Inj 2 Ml IV 03/30/24 13:39 4 mg Q6H PRN Administration NAUSEA OR VOMITING Protocol Plan Jorje Roblero is 84 yr male with PMH of HTN, COPD on 3L home oxygen, left inguinal hernia repair who presents to ED today because he has been feeling week since past few days. Patient stated that for the past few days he has not been able to eat much endorsing decreased appetite and nausea with dry heaving. He has been having difficulty getting out of bed, which is not normal for patient. Also endorses having shortness of breath, fatigue, cough. Patient admitted for management of CHF exacerbation and hospital-acquired pneumonia. #Comfort care Patient's oxygenation requirements increased to high flow nasal cannula overnight; patient's family members and decision-maker made aware, they would like to proceed with comfort measures. Plan: IV morphine drip As needed symptomatic medications/interventions added #Acute on chronic CHF exacerbation, EF <20% #Pulmonary arterial HTN May be likely due to underlying CAD vs history of tobacco abuse vs history of etoh abuse Endorses having shortness of breath, fatigue, cough. Has been using oxygen at home for past 4 to 5 years. Has difficulty at baseline. CT A/P mild CHF with bilateral pulmonary edema and prominent vascular congestion. In ED, patient was given furosemide 40 mg x 2, 1 L bolus of normal saline, started on IV Zosyn. Does not appear to be on goal-directed medical therapy ECHO from 02/29/24: Dilated cardiomyopathy, severely dilated LA, severe global hypokinesis, EF less than 20%, moderate to severe PAH. NYHA class III #LBBB #NSVT #Atrial fibrillation?paroxysmal Patient denies any symptoms of palpitations, SOB or dizziness EKG on admission showed sinus tachycardia, rate 106 with LBBB. Patient appears to also have LBBB on his previous EKGs from chart review. On telemetry review in the ED patient had several rounds of NSVT <30 seconds also alternated in and out of A-fib. Patient not known to have atrial fibrillation from before and not on any rate or rhythm control medication at home. [id number]: 5 points; 7.2% stroke risk per year HAS-BLED : 5 points; high risk of bleeding #Left pleural effusion Hospitalized 1-2 weeks ago at [facility] underwent LHC. Complaints of cough, shortness of breath. No chest pain, fever. Lactic acid was elevated 2.4, WBC normal 9.9. CT A/P significant for pneumonia bilateral lung bases, left pleural effusion Questionable underlying HAP as he has no leukocytosis and elevated LA most likely in setting of fluid overloaded state. #Elevated lactic acid Uptrending since admission. Most likely due to severe HF. No signs of sepsis. Prelimiary blood cultures negative. #GHISLAINE #Hyperkalemia #Hyperphosphatemia Most likely due to cardiorenal syndrome in setting of acute CHF exacerbation vs poor oral intake which seems to be less likely as BUN/creatinine ratio is less than 20. #Transaminitis Less likely alcohol induced, ALT is greater than AST. vs drug-induced Patient denies any abdominal pain. Right upper quadrant ultrasound negative for any findings. AST 444, ALT 600, alk phos 129 #Troponinemia NSTEMI type II demand ischemia Patient has history of CAD with a recent hospitalization to [facility] after presenting with typical chest pain. Patient underwent left heart catheter. Family refused to have patient undergo CABG. EKG in ED showed no acute ischemic changes Troponin trends have been uptrending. 160.06--0.07--0.17 #History hypertension #History of GERD #History CAD Health Maintenance: Diet: regular Bowel: not required GI prophylaxis: not required DVT prophylaxis: Subcu heparin Dispo: Comfort measures initiated Code: DNR/DNI; comfort measures Patient seen and examined with attending Dr. Weinstein and senior resident Dr. Chiqui Lopez, PGY-1 Attending Provider Attestation/Addendum I have discussed and was present for the essential components of the history, physical examination, diagnosis, and treatment plan with the resident. I agree with the patient's care as documented by the resident and amended herein by me. Navi Tingle, DO. Although this document has been carefully reviewed, there may still be some phonetic and other typographical errors. These errors are purely grammatical due to imperfections in the software program and should not be construed in any way to compromise the substance of the patient's medical care during this visit.
[2024-03-02] MEDS: Morphine IV Drip 100mg/100ml 100 ML IV (16:27)
--- NOTE | 2024-03-02 18:36 | PC.NURSE ---
received 2 mg of Morphine for comfort care.daughter at bedside.
[2024-03-02] MEDS: LORazepam 2 MG/ML VIAL IVP (20:39)
[2024-03-02] MEDS: MORPHINE SULF INJ 10 MG/ML VIAL 2 MG IVP ×2 (20:39→21:43)
--- NOTE | 2024-03-02 23:12 | PD.DPN ---
Documentation for date of: 03/02/24 Pronouncement Note Date and Time of Date of : 03/02/24 Time of : 23:01 PCOD Preliminary cause of : Cardiopulmonary arrest Summary Additional details: I was called to patient's bedside to pronounce that Jorje Roblero, 84-year-old male, has . No spontaneous movements present. No response to verbal or tactile stimuli. Pupils mid-dilated, fixed, and unresponsive to light. No breath sounds appreciated over either lung fritz. No heart sounds auscultated over entire precordium. Patient pronounced at 11:01 PM on 03/02/2024. Confirmed and witnessed by nurse. Family was notified and condolences were given. Additional Data Confirmation of : no pulse, no respirations, no heart sounds, pupils fixed and dilated and other (No corneal reflex.) Family: contacted Additional persons at bedside: other (Registered nurse.) Attending/PCP notified?: Yes Attending physician: Terry Weinstein, DO Was code activated?: No (Comfort care.)
--- NOTE | 2024-03-03 01:03 | PC.NURSE ---
MD Musa Reese pronounced patient's expiration at 230. Postmortem care done. Family not at the bedside but they are notified and aware. [facility] picked up pt remains at 0050
--- NOTE | 2024-03-03 16:04 | PD.DDS ---
Documentation for date of: 03/03/24 Summary Date and Time Date of admission: 02/29/24 13:40 Summary Hospital Course: Mr. Roblero was a 84 yr male with PMHx signficant for HTN, COPD on 3L home oxygen, left inguinal hernia repair who presented to ED for generalized weakness and poor po intake for the last few days and was admitted for management of CHF exacerbation and hospital-acquired pneumonia. CT A/P showed mild CHF with bilateral pulmonary edema and prominent vascular congestion. Recent echocardiogram showed dilated cardiomyopathy, severely dilated LA, severe global hypokinesis, EF less than 20%, moderate to severe PAH. Patient recently was seen in [facility], and LHC showed findings that warranted CABG, however, patient's family declined. Throughout this hospital stay, initial goal was to continue with diuretics and start GDMT as per blood pressure. However, patient's oxygenation requirement increased along with worsening lactic acid in the setting multi-organ failure including heart, kidney, and liver. Due to patient's guarded prognosis, patient and patient's family agreed for hospice, and later comfort measures. Patient passed on 11:01PM on 03/02/24, and pronounced by Dr. Reese after pupils were dilated an unresponsive to light, no spontaneous movements, no response to verbal or tactile stimuli, no breath sounds noted over either lung fritz and no heart sounds auscultated over entire precoridum. Family was notified and condolences were given. Hospital diagnoses during hospital stay: #Comfort care #Acute on chronic CHF exacerbation, EF <20% #Pulmonary arterial HTN #LBBB #NSVT #Left pleural effusion #Elevated lactic acid #GHISLAINE #Hyperkalemia #Hyperphosphatemia #Transaminitis #Troponinemia #History hypertension #History of GERD #History CAD Patient's care and plan discussed with my attending, Dr. Weinstein. Kiera Florian, PGY-2 I agree with the findings listed above Additional Data Confirmation of as documented by pronouncing clinician: no pulse, no respirations, no heart sounds and pupils fixed and dilated Family: contacted Attending/PCP notified?: Yes Attending physician: Terry Weinstein, DO Was code activated?: No (comfort measures ) Autopsy requested?: No Visit Providers Provider Primary care physician: Paul Rodgers MD Consults: 02/29/24 13:57 Consult to Cardiology Stat Comment: CHF exacerbation Consulting Provider: Damian Hartman 03/01/24 08:44 Consult to Nephrology Routine Comment: GHISLAINE on CKD, hyperkalemia Consulting Provider: Pernell Loo 03/02/24 07:40 Referral Hospice Stat Comment: Home Discharge Plan Plan Patient Disposition: Prescriptions/Referrals Referrals: Paul Rodgers MD [Primary Care Provider] - Patient/Caregiver Discharge Instructions Print Language: Greek
== END 2024-03-02 23:01 | disposition expired ==
LOC: SERX 12:55 → SERHOLD 14:00 → S2NX 19:30
PROVIDERS: Internal Medicine Cardiovascular Disease; Student in an Organized Health Care Education/Training Program; Admitting Provider Student in an Organized Health Care Education/Training Program; Emergency Provider Emergency Medicine; PCP Family Medicine; Visit Provider Student in an Organized Health Care Education/Training Program
DX: I13.0 Hypertensive heart and chronic kidney disease with heart failure and stage 1 through stage 4 chronic kidney disease, or unspecified chronic kidney disease (principal); I50.23 Acute on chronic systolic (congestive) heart failure; I21.A1 Myocardial infarction type 2; J69.0 Pneumonitis due to inhalation of food and vomit; J96.21 Acute and chronic respiratory failure with hypoxia; E87.20 Acidosis, unspecified; I47.19 Other supraventricular tachycardia; N17.9 Acute kidney failure, unspecified; N18.4 Chronic kidney disease, stage 4 (severe); I42.0 Dilated cardiomyopathy; J44.9 Chronic obstructive pulmonary disease, unspecified; E78.5 Hyperlipidemia, unspecified; E83.39 Other disorders of phosphorus metabolism; E87.5 Hyperkalemia; I25.10 Atherosclerotic heart disease of native coronary artery without angina pectoris; I27.21 Secondary pulmonary arterial hypertension; Z66 Do not resuscitate; I44.7 Left bundle-branch block, unspecified; I46.9 Cardiac arrest, cause unspecified; I48.0 Paroxysmal atrial fibrillation; I71.21 Aneurysm of the ascending aorta, without rupture; K76.1 Chronic passive congestion of liver; K21.9 Gastro-esophageal reflux disease without esophagitis; Z51.5 Encounter for palliative care; Z87.01 Personal history of pneumonia (recurrent); Z87.891 Personal history of nicotine dependence; Z99.81 Dependence on supplemental oxygen; Z79.899 Other long term (current) drug therapy; Z79.82 Long term (current) use of aspirin
CPT/HCPCS: 36415; 71045; 71250; 74176; 76705; 80048; 80053; 80307; 80320; 81001; 82803; 83605; 83690; 83735; 83880; 84100; 84132; 84145; 84484; 85025; 85610; 85730; 87040; 87081; 87400; 87634; 87811; 93005; 93306; 94640; 96365; 96366; 96374; 96375; 96376; 99285; A9270; J0283; J0612; J1643; J1644; J1940; J2060; J2270; J2405; J2543; J3475; J3490; J7030; G0480